=== PATIENT | male | born 1945 | race Caucasian/White ===

== ENCOUNTER 2023-01-21 07:34 | Outpatient (OUT) | payer MEDICARE, SELFPAY ==
[2023-01-21 08:36] LABS: Magnesium 1.9 mg/dL (1.8-2.4); Phosphorus 3.9 mg/dL (2.6-4.7); Uric Acid 7.9 mg/dL (3.5-7.2)
== END 2023-01-21 07:35 | disposition home or self-care (01) ==
LOC: LAB 07:38
PROVIDERS: PCP Nurse Practitioner Family; Visit Provider Internal Medicine Nephrology
DX: I12.9 Hypertensive chronic kidney disease with stage 1 through stage 4 chronic kidney disease, or unspecified chronic kidney disease (principal); N18.32 Chronic kidney disease, stage 3b; E78.5 Hyperlipidemia, unspecified; E79.0 Hyperuricemia without signs of inflammatory arthritis and tophaceous disease; E83.42 Hypomagnesemia
CPT/HCPCS: 36415; 83735; 84100; 84550

== ENCOUNTER 2023-01-21 07:44 | Outpatient (OUT) | payer MEDICARE, SELFPAY ==
[2023-01-21 08:14] LABS: Basophils Percent Auto 0.2 % (0.2-2.0); Eosinophils Absolute Auto 0.2 10^3/uL (0.0-0.7); Eosinophils Percent Auto 2.5 % (0.9-7.0); Hemoglobin 13.7 g/dL (14.0-18.0); Immature Granulocytes Abs Auto 0.03 10^3/uL (0.00-0.03); Immature Granulocytes Pct Auto 0.3 % (0.0-0.5); Lymphocytes Absolute Auto 2.6 10^3/uL (1.2-3.8); Lymphocytes Percent Auto 29.1 % (20.5-60.0); Mean Corpuscular HGB Conc 31.9 g/dL (29.9-35.2); Mean Corpuscular Volume 94.3 fL (80.0-94.0); Mean Platelet Volume 11.6 fL (9.5-13.5); Monocytes Absolute Auto 0.9 10^3/uL (0.3-0.8); Monocytes Percent Auto 9.8 % (1.7-12.0); Neutrophils Absolute Auto 5.1 10^3/uL (1.4-6.5); Neutrophils Percent Auto 58.1 % (43.0-75.0); Platelet Count 150 10^3/uL (150-450); Red Blood Count 4.56 10^6/uL (4.70-6.10); Red Cell Distribution Width 13.3 % (11.0-15.0); White Blood Count 8.8 10^3/uL (4.0-11.0)
[2023-01-21 08:32] LABS: Estimated Average Glucose 134 mg/dL; Glycohemoglobin A1C 6.3 % (4.5-6.2)
[2023-01-21 08:37] LABS: Alanine Aminotransferase 46 U/L (16-63); Albumin Globulin Ratio 0.9; Albumin Level 3.7 g/dL (3.4-5.0); Alkaline Phosphatase 66 U/L (46-116); Anion Gap 11.6; Aspartate Amino Transferase 23 U/L (15-37); Bilirubin Total 0.2 mg/dL (0.2-1.0); Calcium 9.5 mg/dL (8.5-10.1); Carbon Dioxide 26.7 mmol/L (21.0-32.0); Chloride 105 mmol/L (98-107); Cholesterol 170 mg/dL (<=200); Estimated GFR (African America 40 (>=60); Estimated GFR (Non-African Ame 33 (>=60); Globulin 3.9 g/dL; Glucose 115 mg/dL (74-106); HDL Cholesterol 42 mg/dL (40-60); Potassium 4.3 mmol/L (3.5-5.1); Sodium 139 mmol/L (136-145); Total Protein 7.6 g/dL (6.4-8.2); Triglycerides 178 mg/dL (<=150); VLDL CHOLESTEROL 35.6 mg/dL
[2023-01-21 10:13] LABS: Prostate Specific Antigen Scrn 0.53 ng/mL (<=4.00)
== END 2023-01-21 07:45 | disposition home or self-care (01) ==
LOC: LAB 07:46
PROVIDERS: PCP Nurse Practitioner Family; Visit Provider Nurse Practitioner Family
DX: E11.22 Type 2 diabetes mellitus with diabetic chronic kidney disease (principal); E78.5 Hyperlipidemia, unspecified; R73.09 Other abnormal glucose; I12.9 Hypertensive chronic kidney disease with stage 1 through stage 4 chronic kidney disease, or unspecified chronic kidney disease; N18.32 Chronic kidney disease, stage 3b; E79.0 Hyperuricemia without signs of inflammatory arthritis and tophaceous disease; E83.42 Hypomagnesemia; Z12.5 Encounter for screening for malignant neoplasm of prostate
CPT/HCPCS: 36415; 80053; 80061; 83036; 83735; 84100; 84550; 85025; G0103

== ENCOUNTER 2023-07-08 07:59 | Outpatient (OUT) | payer MEDICARE, SELFPAY ==
[2023-07-08 08:26] LABS: Hematocrit 41.6 % (42.0-54.0); Hemoglobin 13.3 g/dL (14.0-18.0); Mean Corpuscular Hemoglobin 30.3 pg (25.9-34.0); Mean Corpuscular Volume 94.8 fL (80.0-94.0); Mean Platelet Volume 11.4 fL (9.5-13.5); Platelet Count 154 10^3/uL (150-450); Red Blood Count 4.39 10^6/uL (4.70-6.10); Red Cell Distribution Width 13.9 % (11.0-15.0); White Blood Count 9.4 10^3/uL (4.0-11.0)
[2023-07-08 08:26] LABS: Bilirubin Urine NEGATIVE (NEGATIVE); Blood Urine NEGATIVE (NEGATIVE); Clarity Urine CLEAR (CLEAR); Color Urine YELLOW (YELLOW); Glucose Urine UA NEGATIVE (NEGATIVE); Ketones Urine NEGATIVE (NEGATIVE); Leukocyte Esterase Urine NEGATIVE (NEGATIVE); Nitrite Urine NEGATIVE (NEGATIVE); Protein Urine NEGATIVE (NEG/TRACE); Specific Gravity Urine >=1.030 (1.005-1.025); Urobilinogen Urine 0.2 EU/dL (0.2-1.0); pH Urine 5.5 (5.0-9.0)
[2023-07-08 08:35] LABS: Protein Creatinine Ratio Urine 0.09; Total Protein Urine Random 23.2 mg/dL (<=11.9)
[2023-07-08 08:41] LABS: Alanine Aminotransferase 41 U/L (16-63); Albumin Globulin Ratio 0.8; Albumin Level 3.3 g/dL (3.4-5.0); Alkaline Phosphatase 76 U/L (46-116); Anion Gap 16.1; Aspartate Amino Transferase 23 U/L (15-37); BUN Creatinine Ratio 17.7; Bilirubin Total 0.4 mg/dL (0.2-1.0); Calcium 9.3 mg/dL (8.5-10.1); Carbon Dioxide 24.8 mmol/L (21.0-32.0); Chloride 103 mmol/L (98-107); Estimated GFR (African America 35 (>=60); Estimated GFR (Non-African Ame 29 (>=60); Globulin 4.1 g/dL; Glucose 126 mg/dL (74-106); Magnesium 1.6 mg/dL (1.8-2.4); Phosphorus 4.1 mg/dL (2.6-4.7); Potassium 3.9 mmol/L (3.5-5.1); Sodium 140 mmol/L (136-145); Total Protein 7.4 g/dL (6.4-8.2); Uric Acid 8.5 mg/dL (3.5-7.2)
[2023-07-09 11:08] LABS: PTH, Intact 57 pg/mL (15-65)
== END 2023-07-08 08:00 | disposition home or self-care (01) ==
LOC: LAB 08:00
PROVIDERS: PCP Nurse Practitioner Family; Visit Provider Internal Medicine Nephrology
DX: N18.32 Chronic kidney disease, stage 3b (principal); I10 Essential (primary) hypertension; E78.5 Hyperlipidemia, unspecified; E79.0 Hyperuricemia without signs of inflammatory arthritis and tophaceous disease; E83.42 Hypomagnesemia
CPT/HCPCS: 36415; 80053; 81003; 82306; 82570; 83735; 83970; 84100; 84156; 84550; 85027

== ENCOUNTER 2024-01-05 07:07 | Outpatient (OUT) | payer MEDICARE, SELFPAY ==
--- OUTSIDE RECORDS SUMMARY | 2024-01-05 07:12 | XMS_ITS | CCD ---
Author Organization [facility] Care Team Providers Care Manufacturing Supervisor Name Role Phone Ignacio Olivares Unavailable PRABHA ULRICH Admitting Unavailable PRABHA ULRICH Attending Unavailable PRABHA ULRICH Primary Care Unavailable MITCHELL, DOCTOR Admitting Unavailable MITCHELL, DOCTOR Attending Unavailable PRABHA ULRICH Primary Care Unavailable MITCHELL, DR TREVIZO Consulting Unavailable IGNACIO OLIVARES Admitting Unavailable IGNACIO OLIVARES Attending Unavailable PRABHA ULRICH Primary Care Unavailable IGNACIO OLIVARES Consulting Unavailable Medications Current Medications Medication Drug Class(es) Dates Sig (Normalized) Sig (Original) fluticasone propionate 0.05 mg/actuat metered dose nasal spray (5 sources) Corticosteroid take 1 spray(s) nasa l route once daily Fluticasone Propionate 50 MCG/ACT 1 spray in each nostril Nasally Once a day Active take 1 spray(s) nasal route once daily Fluticasone Propionate 50 MCG/ACT 1 spray in each nostril Nasally Once a day Active hydroCHLOROthiazide 25 mg oral tablet (5 sources) Thiazide Diuretic take 1 tablet by mouth every twenty-four hours hydroCHLOROthiazide 25 MG 1 tablet in the morning Orally Once a day Active lisinopril 40 mg oral tablet (5 sources) Angiotensin Converting Enzyme Inhibitor take 1 tablet by mouth every twenty-four hours Lisinopril 40 MG 1 tablet Orally Once a day Active magnesium oxide 400 mg oral tablet (3 sources) Start : 08-05 take 1 tablet by mouth every twenty-four hours Magnesium Oxide 400 MG 1 tablet as needed Orally Once a day for 90 days Jul, Active pravastatin sodium 40 mg oral tablet (5 sources) HMG-CoA Reductase Inhibitor take 1 tablet by mouth every twenty-four hours Pravastatin Sodium 40 MG 1 tablet Orally Once a day Active Problems Active Problems Problem Classification Problem Date Documented Date Episodic/Chronic Chronic kidney disease (5 sources) Chronic kidney disease stage 3B ; Translations: [Chronic kidney disease, stage 3b] Chronic Deficiency and other anemia (1 source) Anemia, unspecified Episodic Disorders of lipid metabolism (11 sources) Hyperlipidemia; Translations: [Hyperlipidemia, unspecified] Onset: 10-15-2021 Resolved: 01-14-2022 Chronic Essential hypertension (10 sources) Essential hypertension; Translations: [Essential (primary) hypertension] Onset: 10-15-2021 Resolved: 01-14-2022 Chronic Hypertension with complications and secondary hypertension (4 sources) Hypertensive chronic kidney disease with stage 1 through stage 4 chronic kidney disease, or unspecified chronic kidney disease; Translations: [HTN CKD W/STAGE 1-4 CKD/UNS CKD] Onset: 07-29-2022 Chronic Nutritional deficiencies (2 sources) Vitamin D deficiency; Translations: [Vitamin D deficiency, unspecified] Chronic Other diseases of kidney and ureters (5 sources) Impaired renal function disorder; 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, unspecified] Chronic Other nutritional; endocrine; and metabolic disorders (3 sources) Hypomagnesemia; Translations: [Hypomagnesemia] Chronic Other nutritional; endocrine; and metabolic disorders (3 sources) Hypomagnesemia Chronic Other nutritional; endocrine; and metabolic disorders (1 source) Body mass index 30+ - obesity; Translations: [Obesity, unspecified] Chronic Other nutritional; endocrine; and metabolic disorders (1 source) Obesity, unspecified Chronic Other nutritional; endocrine; and metabolic disorders (5 sources) Hyperuricemia without signs of inflammatory arthritis and tophaceous disease; Translations: [HU W/O SIGNS IA AND TOPHACEOUS DZ] Onset: 01-14-2022 Resolved: 01-14-2022 Episodic Past or Other Problems Problem Classification Problem Date Documented Da te Episodic/Chronic Chronic kidney disease (6 sources) Chronic kidney disease; Translations: [CHRONIC KIDNEY DISEASE STAGE 3B] Onset: 10-15-2021 Resolved: 01-14-2022 Results Test Name Value Interpretation Reference Range Facil ity PTH INTACTon 07-30-2022 PTH, Intact 48 pg/mL Normal 15-65 [facility] Comment on above: Performed By: #### U RTPCR #### [facility] [address] [place] [address] Dr. Ayanna Guido HEMOGRAM AND PLATELon 2022 Hematocrit (Bld) [Volume fraction] 44.6 % Normal 42.0-54.0 [facility] Comment on above: Performed By: #### H H #### [facility] [address] [place] [address] Dr. Ayanna Guido Hemoglobin (Bld) [Mass/Vol] 14.5 g/dL Normal 14.0-18.[address] [facility] Comment on above: Performed By: #### H H #### [facility] [address] [place] [address] Dr. Ayanna Guido MCH (RBC) [Entitic mass] 29.8 pg Normal 25.9-34.[address] [facility] Comment on above: Performed By: #### H H #### [facility] [address] [place] [address] Dr. Ayanna Guido MCHC (RBC) [Mass/Vol] 32.5 g/dL Normal 29.9-35.[address] [facility] Comment on above: Performed By: #### H H #### [facility] [address] [place] [address] Dr. Ayanna Guido MCV (RBC) [Entitic vol] 91.6 fL Normal 80.0-94.[address] [facility] Comment on above: Performed By: #### H H #### [facility] [address] [place] [address] Dr. Ayanna Guido PLT 171 103/ul Normal 150-[address] [facility] Comment on above: Performed By: #### H H #### [facility] [address] [place] [address] Dr. Ayanna Guido RBC 4.87 106/ul Normal 4.70-6.[address] [facility] Comment on above: Performed By: #### H H #### [facility] [address] [place] [address] Dr. Ayanna Giudo WBC 9.7 103/ul Normal 4.0-11.[address] [facility] Comment on above: Performed By: #### H H #### [facility] [address] [place] [address] Dr. Ayanna Guido MAGNESIUMon 01-17-2023 Magnesium [Mass/Vol] 1.7 mg/dL Critically low 1.8-2.4 [facility] Comment on above: Performed By: #### M G, CMP #### [facility] [address] [address] [address] Ayanna Guido PROF 14(COMP METB)on 023 Albumin [Mass/Vol] 3.9 g/dL Normal 3.4-5.0 [facility] Comment on above: Performed By: #### M G, CMP #### [facility] [address] [address] [address] Ayanna Guido Albumin/Globulin [Mass ratio] 1.1 {ratio} Normal [facility] Comment on above: Performed By: #### M G, CMP #### [facility] [address] [place] [address] Dr. Ayanna Guido ALP [Catalytic activity/Vol] 71 U/L Normal 46-116 [facility] Comment on above: Performed By: #### M G, CMP #### [facility] [address] [place] [address] Dr. Ayanna Guido ALT [Catalytic activity/Vol] 36 U/L Normal 16-63 [facility] Comment on above: Performed By: #### M G, CMP #### [facility] [address] [address] [address] Ayanna Guido Anion gap [Moles/Vol] 17.2 mmol/L Normal [facility] Comment on above: Performed By: #### M G, CMP #### [facility] [address] [place] [address] Dr. Ayanna Guido AST [Catalytic activity/Vol] 22 U/L Normal 15-37 [facility] Comment on above: Performed By: #### M G, CMP #### [facility] [address] [place] [address] Dr. Ayanna Guido Bilirubin [Mass/Vol] 0.3 mg/dL Normal 0.2-1.0 [facility] Comment on above: Performed By: #### M G, CMP #### [facility] [address] [address] [address] Ayanna Guido Calcium [Mass/Vol] 9.6 mg/dL Normal 8.5-10.1 [facility] Comment on above: Performed By: #### M G, CMP #### [facility] [address] [address] [address] Ayanna Guido Chloride [Moles/Vol] 102 mmol/L Normal 98-107 [facility] Comment on above: Performed By: #### M G, CMP #### [facility] [address] [place] [address] Dr. Ayanna Guido CO2 [Moles/Vol] 24.0 mmol/L Normal 21.0-32.0 [facility] Comment on above: Performed By: #### M G, CMP #### [facility] [address] [place] [address] Dr. Ayanna Guido Creatinine [Mass/Vol] 1.89 mg/dL Critically high 0.70-1.30 [facility] Comment on above: Performed By: #### M G, CMP #### [facility] [address] [place] [address] Dr. Ayanna Guido EGFR-AF SWAZI 42 mL/min/1.73m2 Critically low >=60 [facility] Comment on above: Performed By: #### M G, CMP #### [facility] [address] [place] [address] Dr. Ayanna Guido EGFR-NON AF SWAZI 35 mL/min/1.73m2 Critically low >=60 [facility] Comment on above: Performed By: #### M G, CMP #### [facility] [address] [place] [address] Dr. Ayanna Guido Globulin (S) [Mass/Vol] 3.6 g/dL Normal [facility] Comment on above: Performed By: #### M G, CMP #### [facility] [address] [place] [address] Dr. Ayanna Guido Glucose [Mass/Vol] 123 mg/dL Critically high 74-106 [facility] Comment on above: Performed By: #### M G, CMP #### [facility] [address] [address] [address] Ayanna Guido Potassium [Moles/Vol] 4.2 mmol/L Normal 3.5-5.1 [facility] Comment on above: Performed By: #### M G, CMP #### [facility] [address] [place] [address] Dr. Ayanna Guido Protein [Mass/Vol] 7.5 g/dL Normal 6.4-8.2 [facility] Comment on above: Performed By: #### M G, CMP #### [facility] [address] [place] [address] Dr. Ayanna Guido Sodium [Moles/Vol] 139 mmol/L Normal 136-145 [facility] Comment on above: Performed By: #### M G, CMP #### [facility] [address] [place] [address] Dr. Ayanna Guido Urea nitrogen [Mass/Vol] 37.0 mg/dL Critically high 7.0-18.0 [facility] Comment on above: Performed By: #### M G, CMP #### [facility] [address] [place] [address] Dr. Ayanna Guido Urea nitrogen/Creatinine [Mass ratio] 19.6 mg/mg Normal [facility] Comment on above: Performed By: #### M G, CMP #### [facility] [address] [place] [address] Dr. Ayanna Guido UA RANDOMon 07-29-2022 Bilirubin Ql (U) Negative Normal NEGATIVE [facility] Comment on above: Performed By: #### U RTPCR #### [facility] [address] [place] [address] Dr. Ayanna Guido Clarity (U) CLEAR Normal CLEAR [facility] Comment on above: Performed By: #### U RTPCR #### [facility] [address] [place] [address] Dr. Ayanna Guido Color (U) LT. YELLOW Normal YELLOW [facility] Comment on above: Performed By: #### U RTPCR #### [facility] [address] [address] [address] Ayanna Guido Glucose Ql (U) Negative Normal NEGATIVE [facility] Comment on above: Performed By: #### U RTPCR #### [facility] [address] [place] [address] Dr. Ayanna Guido Hemoglobin Ql (U) Negative Normal NEGATIVE [facility] Comment on above: Performed By: #### U RTPCR #### [facility] [address] [place] [address] Dr. Ayanna Guido Ketones Ql (U) Negative Normal NEGATIVE [facility] Comment on above: Performed By: #### U RTPCR #### [facility] [address] [place] [address] Dr. Ayanna Guido LEUKOCYTES Negative Normal NEGATIVE [facility] Comment on above: Performed By: #### U RTPCR #### [facility] [address] [place] [address] Dr. Ayanna Guido Nitrite Ql (U) Negative Normal NEGATIVE [facility] Comment on above: Performed By: #### U RTPCR #### [facility] [address] [place] [address] Dr. Ayanna Guido pH (U) 5.5 [pH] Normal 5-[address] [facility] Comment on above: Performed By: #### U RTPCR #### [facility] [address] [place] [address] Dr. Ayanna Guido SPEC GRAVITY 1.025 Normal 1.005-<=1.025 [facility] Comment on above: Performed By: #### U RTPCR #### [facility] [address] [place] [address] Dr. Ayanna Guido UA PROTEIN Negative Normal NEGATIVE/ TRACE [facility] Comment on above: Performed By: #### U RTPCR #### [facility] [address] [place] [address] Dr. Ayanna Guido Urobilinogen Qn (U) 0.2 {Sejal'U}/dL Normal 0.2 - 1. 0 [facility] Comment on above: Performed By: #### U RTPCR #### [facility] [address] [place] [address] Dr. Ayanna Guido URINE T PROTEIN CREAT RATIOo n 07-29-2022 Protein (U) [Mass/Vol] 19.1 mg/dL Critically high <=12.0 [facility] Comment on above: Performed By: #### U RTPCR #### [facility] [address] [place] [address] Dr. Ayanna Guido UR PROT CREAT RAT 0.09 Normal [facility] Comment on above: Performed By: #### U RTPCR #### [facility] [address] [place] [address] Dr. Ayanna Guido URINE CREAT 208.17 mg/dL Normal 20.00-300.00 [facility] Comment on above: Performed By: #### U RTPCR #### [facility] [address] [place] [address] Dr. Ayanna Guido VITAMIN D 25 OHon 07-29-2022 VIT D 25-OH 33.7 ng/mL Normal [facility] Comment on above: Performed By: #### V ITAD #### [facility] [address] [place] [address] Dr. Ayanna Guido VIT D RANGES SEE BELOW Normal [facility] Comment on above: Result Comment: <20 ng/mL Vit D deficient 20 - <30 ng/mL Vit D insufficient 30 - 100 ng/mL Vit D sufficient >100 ng/mL Potential Toxicity Performed By: #### V ITAD #### [facility] [address] [place] [address] Dr. Ayanna Guido PTH INTACTon 01-08-2022 PTH, Intact 55 pg/mL Normal 15-65 [facility] Comment on above: Performed By: #### P THINT #### [facility] [address] [place] [address] Dr. Ayanna Guido HEMOGRAM AND PLATELon 2021 Hematocrit (Bld) [Volume fraction] 46.0 % Normal 42.0-54.0 [facility] Comment on above: Performed By: #### H H #### [facility] [address] [place] [address] Dr. Ayanna Guido Hemoglobin (Bld) [Mass/Vol] 14.7 g/dL Normal 14.0-18.0 [facility] Comment on above: Performed By: #### H H #### [facility] [address] [place] [address] Dr. Ayanna Guido MCH (RBC) [Entitic mass] 29.8 pg Normal 25.9-34.0 [facility] Comment on above: Performed By: #### H H #### [facility] [address] [place] [address] Dr. Ayanna Guido MCHC (RBC) [Mass/Vol] 32.0 g/dL Normal 29.9-35.2 [facility] Comment on above: Performed By: #### H H #### [facility] [address] [place] [address] Dr. Ayanna Guido MCV (RBC) [Entitic vol] 93.1 fL Normal 80.0-94.0 [facility] Comment on above: Performed By: #### H H #### [facility] [address] [place] [address] Dr. Ayanna Guido PLT 165 103/ul Normal 150-450 [facility] Comment on above: Performed By: #### H H #### [facility] [address] [place] [address] Dr. Ayanna Guido RBC 4.94 106/ul Normal 4.70-6.10 [facility] Comment on above: Performed By: #### H H #### [facility] [address] [place] [address] Dr. Ayanna Guido WBC 9.7 103/ul Normal 4.0-11.0 [facility] Comment on above: Performed By: #### H H #### [facility] [address] [place] [address] Dr. Ayanna Guido PROF 14(COMP METB)on 022 Albumin [Mass/Vol] 4.0 g/dL Normal 3.4-5.0 [facility] Comment on above: Performed By: #### U RTPCR #### [facility] [address] [place] [address] Dr. Ayanna Guido Albumin/Globulin [Mass ratio] 1.0 {ratio} Normal [facility] Comment on above: Performed By: #### U RTPCR #### [facility] [address] [place] [address] Dr. Ayanna Guido ALP [Catalytic activity/Vol] 63 U/L Normal 46-116 [facility] Comment on above: Performed By: #### U RTPCR #### [facility] [address] [place] [address] Dr. Ayanna Giudo ALT [Catalytic activity/Vol] 42 U/L Normal 16-63 [facility] Comment on above: Performed By: #### U RTPCR #### [facility] [address] [place] [address] Dr. Ayanna Guido Anion gap [Moles/Vol] 15.4 mmol/L Normal [facility] Comment on above: Performed By: #### U RTPCR #### [facility] [address] [place] [address] Dr. Ayanna Guido AST [Catalytic activity/Vol] 22 U/L Normal 15-37 [facility] Comment on above: Performed By: #### U RTPCR #### [facility] [address] [place] [address] Dr. Ayanna Guido Bilirubin [Mass/Vol] 0.5 mg/dL Normal 0.2-1.0 [facility] Comment on above: Performed By: #### U RTPCR #### [facility] [address] [place] [address] Dr. Ayanna Guido Calcium [Mass/Vol] 9.6 mg/dL Normal 8.5-10.1 [facility] Comment on above: Performed By: #### U RTPCR #### [facility] [address] [place] [address] Dr. Ayanna Guido Chloride [Moles/Vol] 102 mmol/L Normal 98-107 [facility] Comment on above: Performed By: #### U RTPCR #### [facility] [address] [place] [address] Dr. Ayanna Guido CO2 [Moles/Vol] 24.7 mmol/L Normal 21.0-32.0 [facility] Comment on above: Performed By: #### U RTPCR #### [facility] [address] [address] [address] Ayanna Guido Creatinine [Mass/Vol] 2.07 mg/dL Critically high 0.70-1.30 [facility] Comment on above: Performed By: #### U RTPCR #### [facility] [address] [address] [address] Ayanna Guido EGFR-AF SWAZI 38 mL/min/1.73m2 Critically low >=60 [facility] Comment on above: Performed By: #### U RTPCR #### [facility] [address] [place] [address] Dr. Ayanna Guido EGFR-NON AF SWAZI 32 mL/min/1.73m2 Critically low >=60 [facility] Comment on above: Performed By: #### U RTPCR #### [facility] [address] [place] [address] Dr. Ayanna Guido Globulin (S) [Mass/Vol] 4.0 g/dL Normal [facility] Comment on above: Performed By: #### U RTPCR #### [facility] [address] [place] [address] Dr. Ayanna Guido Glucose [Mass/Vol] 121 mg/dL Critically high 74-106 T [facility] Comment on above: Performed By: #### U RTPCR #### [facility] [address] [place] [address] Dr. Ayanna Guido Potassium [Moles/Vol] 5.1 mmol/L Normal 3.5-5.1 [facility] Comment on above: Performed By: #### U RTPCR #### [facility] [address] [place] [address] Dr. Ayanna Guido Protein [Mass/Vol] 8.0 g/dL Normal 6.4-8.2 [facility] Comment on above: Performed By: #### U RTPCR #### [facility] [address] [place] [address] Dr. Ayanna Guido Sodium [Moles/Vol] 137 mmol/L Normal 136-145 [facility] Comment on above: Performed By: #### U RTPCR #### [facility] [address] [place] [address] Dr. Ayanna Guido Urea nitrogen [Mass/Vol] 34.0 mg/dL Critically high 7.0-18.0 [facility] Comment on above: Performed By: #### U RTPCR #### [facility] [address] [place] [address] Dr. Ayanna Guido Urea nitrogen/Creatinine [Mass ratio] 16.4 mg/mg Normal [facility] Comment on above: Performed By: #### U RTPCR #### [facility] [address] [place] [address] Dr. Ayanna Guido UA RANDOMon 01-07-2022 Bilirubin Ql (U) Negative Normal NEGATIVE [facility] Comment on above: Performed By: #### U RTPCR #### [facility] [address] [place] [address] Dr. Ayanna Guido Clarity (U) CLEAR Normal CLEAR [facility] Comment on above: Performed By: #### U RTPCR #### [facility] [address] [place] [address] Dr. Ayanna Guido Color (U) YELLOW Normal YELLOW [facility] Comment on above: Performed By: #### U RTPCR #### [facility] [address] [place] [address] Dr. Ayanna Guido Glucose Ql (U) Negative Normal NEGATIVE [facility] Comment on above: Performed By: #### U RTPCR #### [facility] [address] [place] [address] Dr. Ayanna Guido Hemoglobin Ql (U) Negative Normal NEGATIVE [facility] Comment on above: Performed By: #### U RTPCR #### [facility] [address] [place] [address] Dr. Ayanna Guido Ketones Ql (U) Negative Normal NEGATIVE [facility] Comment on above: Performed By: #### U RTPCR #### [facility] [address] [place] [address] Dr. Ayanna Guido LEUKOCYTES Negative Normal NEGATIVE [facility] Comment on above: Performed By: #### U RTPCR #### [facility] [address] [place] [address] Dr. Ayanna Guido Nitrite Ql (U) Negative Normal NEGATIVE [facility] Comment on above: Performed By: #### U RTPCR #### [facility] [address] [place] [address] Dr. Ayanna Guido pH (U) 5.5 [pH] Normal 5-9 [facility] Comment on above: Performed By: #### U RTPCR #### [facility] [address] [place] [address] Dr. Ayanna Guido SPEC GRAVITY 1.020 Normal 1.005-<=1.025 [facility] Comment on above: Performed By: #### U RTPCR #### [facility] [address] [place] [address] Dr. Ayanna Guido UA PROTEIN Negative Normal NEGATIVE/ TRACE [facility] Comment on above: Performed By: #### U RTPCR #### [facility] [address] [place] [address] Dr. Ayanna Guido Urobilinogen Qn (U) 0.2 {Sejal'U}/dL Normal 0.2 - 1. 0 [facility] Comment on above: Performed By: #### U RTPCR #### [facility] [address] [place] [address] Dr. Ayanna Guido URIC ACID SERUMon 01-07-2022 Urate [Mass/Vol] 8.7 mg/dL Critically high 3.5-7.2 [facility] Comment on above: Performed By: #### U ANDREE, CMP #### [facility] [address] [place] [address] Dr. Ayanna Guido URINE T PROTEIN CREAT RATIOo n 01-07-2022 Protein (U) [Mass/Vol] 11.2 mg/dL Normal <=12.0 [facility] Comment on above: Performed By: #### U RTPCR #### [facility] [address] [place] [address] Dr. Ayanna Guido UR PROT CREAT RAT 0.07 Normal [facility] Comment on above: Performed By: #### U RTPCR #### [facility] [address] [address] [address] Ayanna Guido URINE CREAT 172.34 mg/dL Normal 20.00-300.00 [facility] Comment on above: Performed By: #### U RTPCR #### [facility] [address] [address] [address] Ayanna Guido VITAMIN D 25 OHon 01-07-2022 VIT D 25-OH 33.4 ng/mL Normal [facility] Comment on above: Performed By: #### V ITAD #### [facility] [address] [place] [address] Dr. Ayanna Guido VIT D RANGES SEE BELOW Normal [facility] Comment on above: Result Comment: <20 ng/mL Vit D deficient 20 - <30 ng/mL Vit D insufficient 30 - 100 ng/mL Vit D sufficient >100 ng/mL Potential Toxicity Performed By: #### V ITAD #### [facility] [address] [place] [address] Dr. Ayanna Guido Vital Signs Date Time Vital Sign Value Performing Clinician Facility 07-15-2023 09:20-0500 Body height 168.91 cm Ignacio Wangvanda Other [facility] [employer] Other 07-15-2023 09:20-0500 Body mass index (BMI) [Ratio] 36.28 kg/m2 Ignacio Wangvanda Other [facility] Other 07-15-2023 09:20-0500 Body temperature 96.5 [degF] Ignacio Olivares Other [facility] Other 07-15-2023 09:20-0500 Body weight 103.51 kg Ignacio Wangvanda Other [facility] Other 07-15-2023 09:20-0500 Diastolic blood pressure 80 mm[Hg] Aziz Bakhous Other [facility] Other 07-15-2023 09:20-0500 Respiratory rate 18 /min Aziz Bakhous Other [facility] Other 07-15-2023 09:20-0500 SaO2% (BldA) [Mass fraction] 96 % Aziz Bakhous Other [facility] Other 07-15-2023 09:20-0500 Systolic blood pressure 126 mm[Hg] Aziz Bakhous Other [facility] Other 01-27-2023 09:00-0400 Body height 168.91 cm Azariana Bakchilos Other [facility] Other 01-27-2023 09:00-0400 Body mass index (BMI) [Ratio] 36.75 kg/m2 Aziz Bakhous Other [facility] Other 01-27-2023 09:00-0400 Body temperature 96.9 [degF] Azariana Bakhous Other [facility] Other 01-27-2023 09:00-0400 Body weight 104.87 kg Aziz Bakhous Other [facility] Other 01-27-2023 09:00-0400 Diastolic blood pressure 80 mm[Hg] Aziz Bakhous Other [facility] Other 01-27-2023 09:00-0400 Respiratory rate 18 /min Aziz Bakhous Other [facility] Other 01-27-2023 09:00-0400 SaO2% (BldA) [Mass fraction] 96 % Aziz Bakchilos Other [facility] Other 01-27-2023 09:00-0400 Systolic blood pressure 135 mm[Hg] Aziz Bakhous Other [facility] Other 08-05-2022 10:20-0500 Body height 168.91 cm Aziz Bakhous Other [facility] Other 08-05-2022 10:20-0500 Body mass index (BMI) [Ratio] 34.69 kg/m2 Aziz Bakhous Other [facility] Other 08-05-2022 10:20-0500 Body temperature 98.5 [degF] Aziz Bakhous Other [facility] Other 08-05-2022 10:20-0500 Body weight 98.98 kg Aziz Bakhous Other [facility] Other 08-05-2022 10:20-0500 Diastolic blood pressure 88 mm[Hg] Aziz Bakhous Other [facility] Other 08-05-2022 10:20-0500 Respiratory rate 18 /min Aziz Bakhous Other [facility] Other 08-05-2022 10:20-0500 SaO2% (BldA) [Mass fraction] 97 % Aziz Bakhous Other [facility] Other 08-05-2022 10:20-0500 Systolic blood pressure 139 mm[Hg] Aziz Bakhous Other [facility] Other 01-14-2022 11:00-0400 Body height 168.91 cm Ignacio Bonners Other [facility] Other 01-14-2022 11:00-0400 Body mass index (BMI) [Ratio] 34.24 kg/m2 Ignacio Bonners Other [facility] Other 01-14-2022 11:00-0400 Body temperature 96.5 [degF] Ignacio Bonners Other [facility] Other 01-14-2022 11:00-0400 Body weight 97.71 kg Ignacio Bonners Other [facility] Other 01-14-2022 11:00-0400 Diastolic blood pressure 90 mm[Hg] Ignacio Bonners Other [facility] Other 01-14-2022 11:00-0400 Respiratory rate 18 /min Ignacio Bonners Other [facility] Other 01-14-2022 11:00-0400 SaO2% (BldA) [Mass fraction] 92 % Ignacio Bonners Other [facility] Other 01-14-2022 11:00-0400 Systolic blood pressure 137 mm[Hg] Ignacio Bonners Other [facility] Other 10-15-2021 16:00-0400 Body height 168.91 cm Ignacio Bonners Other [facility] Other 10-15-2021 16:00-0400 Body mass index (BMI) [Ratio] 36.85 kg/m2 Aziz Bakhous Other [facility] Other 10-15-2021 16:00-0400 Body temperature 98.1 [degF] Aziz Bakhous Other [facility] Other 10-15-2021 16:00-0400 Body weight 105.14 kg Aziz Bakhous Other [facility] Other 10-15-2021 16:00-0400 Diastolic blood pressure 73 mm[Hg] Aziz Bakhous Other [facility] Other 10-15-2021 16:00-0400 Respiratory rate 20 /min Aziz Bakhous Other [facility] Other 10-15-2021 16:00-0400 SaO2% (BldA) [Mass fraction] 95 % Aziz Bakhous Other [facility] Other 10-15-2021 16:00-0400 Systolic blood pressure 109 mm[Hg] Aziz Bakhous Other [facility] Other Encounters Encounter Date Encounter Type Care Provider Facility Start: 07-15-2023 End: 07-15-2023 ambulatory Aziz Bakhous Other [facility] Other Start: 07-15-2023 Office outpatient vi sit 25 minutes Aziz Bakhous [facility] Start: 01-27-2023 End: 01-27-2023 ambulatory Aziz Bakhous Other [facility] Other Start: 01-27-2023 Office outpatient vi sit 25 minutes Aziz Bakhous [facility] Start: 10-22-2022 ambulatory PRABHA ULRICH Facility: [facility] Start: 08-05-2022 End: 08-05-2022 ambulatory Aziz Bakhous Other [facility] Other Start: 08-05-2022 Office outpatient vi sit 15 minutes Aziz Bakhous [facility] Start: 07-29-2022 End: 07-30-2022 ambulatory AZIZ BAKHOUS Facility:[facility] Start: 01-14-2022 End: 01-14-2022 ambulatory Aziz Bakhous Other [facility] Other Start: 01-14-2022 Office outpatient vi sit 15 minutes Aziz Bakhous [facility] Start: 01-07-2022 End: 01-08-[address] DOCTOR MEDRANO Facility:[facility] Start: 10-15-2021 End: 10-15-2021 ambulatory Aziz Bakhous Other [facility] Other Start: 10-15-2021 Office outpatient ne w 30 minutes Aziz Bakhous [facility] Payers Date Payer Category Payer Medicare [id number] 2.. 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 UA is benign. No peritoneal hematuria Volume status is well controlled. Blood pressures well controlled.I asked the patient to follow a low protein diet. I instructed the patient to stay away from NSAIDs and to keep himself well-hydrated. I will follow the patient in 6 months Jul, Primary hypertension (ICD-10 - I10) Blood pressure seems well controlled. I will continue same medications. I asked the patient to follow a low-salt diet and to monitor blood pressure at home. Jul, Hyperlipidemia LDL goal <100 (ICD-10 - E78.5) Follow with PCP. Already on statin Jul, Hyperuricemia (ICD-10 - E79.0) Uric acid level is 8.5 patient has had no gout episodes in the past. I asked the patient to follow a low protein diet. Recheck uric acid next visit Jul, Hypomagnesemia (ICD-10 - E83.42) Mg is 1.6 mg/dl.Will send refill of Mg supplement Jul, Anemia, unspecified type (ICD-10 - D64.9) Hgb 12.3 g/dl. Will check iron. VB12 and folate storages next visit Jul, Obesity (BMI 30-39.9) (ICD-10 - E66.9) I advised the patient to lose weight to attenuate CKD progression. Jul, Vitamin D deficiency (ICD-10 - E55.9) 25 OH VD level is 28. 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 UA is benign. No peritoneal hematuria Volume status is well controlled. Blood pressures well controlled. I asked the patient to follow a low protein diet. I instructed the patient to stay away from NSAIDs and to keep himself well-hydrated. I will follow the patient in 6 months Jan, Primary hypertension (ICD-10 - I10) Blood pressure seems well controlled. I will continue same medications. I asked the patient to follow a low-salt diet and to monitor blood pressure at home. Jan, Hyperlipidemia LDL goal <100 (ICD-10 - E78.5) Follow with PCP. Already on statin Jan, Hyperuricemia (ICD-10 - E79.0) Uric acid level close to target 7.9 patient has had no gout episodes in the past I asked the patient to follow a low protein diet. Recheck uric acid next visit Jan, Hypomagnesemia (ICD-10 - E83.42) Continue magnesium supplement. Magnesium level is within normal limit this visit. 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 UA is benign. No peritoneal hematuria Volume status is well controlled. Blood pressures well controlled. I'll order renal US for next visit I asked the patient to follow a low protein diet. I instructed the patient to stay away from NSAIDs and to keep himself well-hydrated. I will follow the patient in 6 months Jul, Primary hypertension (ICD-10 - I10) Blood pressure seems well controlled. I will continue same medications Jul, Hyperlipidemia LDL goal <100 (ICD-10 - E78.5) Follow with PCP. Already on statin Jul, Hyperuricemia (ICD-10 - E79.0) Uric acid slightly high 8.6. Patient has had no gout episodes in the past I asked the patient to follow a low protein diet. 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 UA is benign. No peritoneal hematuria Volume status is well controlled. Blood pressures well controlled. I asked the patient to follow a low protein diet. I instructed the patient to stay away from NSAIDs and to keep himself well-hydrated. I will follow the patient in 6 months Jan, Primary hypertension (ICD-10 - I10) Blood pressure seems well controlled. I will continue same medications Jan, Hyperlipidemia LDL goal <100 (ICD-10 - E78.5) Follow with PCP. Already on statin Jan, Hyperuricemia (ICD-10 - E79.0) Uric acid slightly high 8.6. Patient has had no gout episodes in the past I asked the patient to follow a low protein diet. 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 Blood pressures well controlled. I will check UA along with protein to creatinine ratio, PTH, and anemia next visit. I will check also renal ultrasound. I asked the patient to follow a low protein diet. I instructed the patient to stay away from NSAIDs and to keep himself well-hydrated. I will follow the patient in 3-4 months Oct, Primary hypertension (ICD-10 - I10) Blood pressure seems well controlled. I will continue same medications Oct, Hyperlipidemia LDL goal <100 (ICD-10 - E78.5) Follow with PCP. Already on statin [facility] Other History general Narrative - Reported Note Date & Type Note Facility History general Narrative - Reported Type Medical History HYPERTENSION Medical History HYPERLIPIDEMIA Medical History SEASONAL ALLERGIES Medical History SLEEP APNEA Surgical History CARPAL TUNNEL RELEASE X 2 Surgical History THROAT SURGERY FOR SLEEP APNEA [facility] Other Summary Purpose Family History No Family History Records Found Advance Directives No Advanced Directives Records Found Additional Source Comments REASON FOR VISIT (unrecogniz ed section and content) RENAL WORSENING RENAL FUNCTI ONRENAL 3 month Follow upRENAL 6 month Follow upRENAL 6 month Follow upRENAL 6 month Follow up (unrecognized sect ion and content) No Status Records Found INFORMATION SOURCE (unrecogn ized section and content) DATE CREATED AUTHOR 10/22/2022 [facility] FOR RECORDS PERTAINING TO PATIENTS WHO ARE OR HAVE BEEN ENROLLED IN A CHEMICAL DEPENDENCY/SUBSTANCEABUSE PROGRAM, SOME INFORMATION MAY BE OMITTED. This clinical summary was aggregated from multiple sources. Caution should be exercised in using it in the provision of clinical care. This summary normalizes information from multiple sources, and as a consequence, information in this document may materially change the coding, format and clinical context of patient data. In addition, data may be omitted in some cases. CLINICAL DECISIONS SHOULD BE BASED ON THE PRIMARY CLINICAL RECORDS. [facility]. provides no warranty or guarantee of the accuracy or completeness of information in this document.
[2024-01-05 07:38] LABS: Hematocrit 45.8 % (42.0-54.0); Hemoglobin 14.7 g/dL (14.0-18.0); Mean Corpuscular HGB Conc 32.1 g/dL (29.9-35.2); Mean Corpuscular Volume 93.5 fL (80.0-94.0); Mean Platelet Volume 11.9 fL (9.5-13.5); Platelet Count 158 10^3/uL (150-450); Red Cell Distribution Width 14.4 % (11.0-15.0); White Blood Count 9.8 10^3/uL (4.0-11.0)
[2024-01-05 07:43] LABS: Alanine Aminotransferase 51 U/L (16-63); Albumin Globulin Ratio 0.9; Albumin Level 3.6 g/dL (3.4-5.0); Alkaline Phosphatase 77 U/L (46-116); Anion Gap 14.2; Aspartate Amino Transferase 27 U/L (15-37); BUN Creatinine Ratio 12.6; Bilirubin Total 0.4 mg/dL (0.2-1.0); Calcium 9.2 mg/dL (8.5-10.1); Carbon Dioxide 25.4 mmol/L (21.0-32.0); Chloride 105 mmol/L (98-107); Estimated GFR (African America 42 (>=60); Estimated GFR (Non-African Ame 35 (>=60); Globulin 3.9 g/dL; Glucose 132 mg/dL (74-106); Magnesium 2.1 mg/dL (1.8-2.4); Potassium 4.6 mmol/L (3.5-5.1); Sodium 140 mmol/L (136-145); Total Protein 7.5 g/dL (6.4-8.2); Uric Acid 7.3 mg/dL (3.5-7.2)
[2024-01-05 07:57] LABS: Creatinine Urine Random 135.65 mg/dL (20.00-300.00); Protein Creatinine Ratio Urine 0.18; Total Protein Urine Random 24.7 mg/dL (<=11.9)
[2024-01-05 09:34] LABS: Percent Iron Saturation 22.8 %
[2024-01-06 12:11] LABS: PTH, Intact 42 pg/mL (15-65)
== END 2024-01-05 07:08 | disposition home or self-care (01) ==
LOC: LAB 07:09
PROVIDERS: PCP Nurse Practitioner Family; Visit Provider Internal Medicine Nephrology
DX: N18.32 Chronic kidney disease, stage 3b (principal); I10 Essential (primary) hypertension; E78.5 Hyperlipidemia, unspecified; E79.0 Hyperuricemia without signs of inflammatory arthritis and tophaceous disease; E83.42 Hypomagnesemia; D64.9 Anemia, unspecified
CPT/HCPCS: 36415; 80053; 82306; 82570; 82607; 82728; 82746; 83540; 83550; 83735; 83970; 84100; 84156; 84550; 85027

== ENCOUNTER 2024-07-08 08:10 | Outpatient (OUT) | payer MEDICARE, SELFPAY ==
--- OUTSIDE RECORDS SUMMARY | 2024-07-08 08:28 | XMS_ITS | CCD ---
Author Organization [facility] CliniSywy Care Team Providers Care Customer Services Supervisor Name Role Phone Ignacio Olivares Unavailable PRABHA ULRICH Admitting Unavailable PRABHA ULRICH Attending Unavailable PRABHA ULRICH Primary Care Unavailable MISEcho, DOCTOR Admitting Unavailable MITCHELL, DOCTOR Attending Unavailable PRABHA ULRICH Primary Care Unavailable MITCHELL, DOCTOR Consulting Unavailable IGNACIO OLIVARES Admitting Unavailable IGNACIO OLIVARES Attending Unavailable PRABHA ULRICH Primary Care Unavailable IGNACIO OLIVARES Consulting Unavailable Medications Current Medications Medication Drug Class(es) Dates Sig (Normalized) Sig (Original) cholecalciferol 0.05 mg oral capsule (1 source) Vitamin D Start: 01-12-2024 take 50 ug by mouth once daily Cholecalciferol (Vitamin D3) Active 50 MCG PO Daily January 12, 2024 12:00am fluticasone propionate 0.05 mg/actuat metered dose nasal spray (6 sources) Corticosteroid Start: 01-12-2024 Fluticasone Propionate Active 1 SPRAY INTRANASAL Daily January 12, 2024 12:00am take 1 spray(s) nasal route once daily Fluticasone Propionate 50 MCG/ACT 1 spray in each nostril Nasally Once a day Active take 1 spray(s) nasal route once daily Fluticasone Propionate 50 MCG/ACT 1 spray in each nostril Nasally Once a day Active hydroCHLOROthiazide 25 mg oral tablet (6 sources) Thiazide Diuretic Start: 01-12-2024 take 25 mg by mouth once daily Hydrochlorothiazide Active 25 MG PO Daily January 12, 2024 12:00am take 1 tablet by miguelina th every twenty-four hours hydroCHLOROthiazide 25 MG 1 tablet in th e morning Orally Once a day Active lisinopril 40 mg oral tablet (6 sources) Angiotensin Converting Enzyme Inhibitor Start: 01-12-2024 take 40 mg by mouth once daily Lisinopril Active 40 MG PO Daily January 12, 2024 12:00am take 1 tablet by miguelina th every twenty-four hours Lisinopril 40 MG 1 tablet Orally Once a day Active magnesium oxide 400 mg oral tablet (4 sources) Start: 01-12-2024 take 400 mg by mouth once daily Magnesium Oxide Active 400 MG PO Daily January 12, 2024 12:00am Start: 08-05-2022 take 1 tablet by miguelina th every twenty-four hours Magnesium Oxide 400 MG 1 tablet as needed Orally Once a day for 90 days Jul, Active pravastatin sodium 40 mg oral tablet (6 sources) HMG-CoA Reductase Inhibitor Start: 01-12-2024 take 40 mg by mouth once daily Pravastatin Active 40 MG PO Daily January 12, 2024 12:00am take 1 tablet by miguelina th every twenty-four hours Pravastatin Sodium 40 MG 1 tablet Orally Once a day Active sildenafil 25 mg oral tablet (1 source) Phosphodiesterase 5 Inhibitor Start: 01-12-2024 take 25 mg by mouth once Sildenafil Active 25 MG PO Once January 12, 2024 12:00am Problems Active Problems Problem Classification Problem Date Documented Date Episodic/Chronic Chronic kidney disease (9 sources) Chronic kidney disease stage 3B ; Translations: [Chronic kidney disease, stage 3b] 01-08-2024 Chronic Deficiency and other anemia (1 source) Anemia, unspecified Episodic Disorders of lipid metabolism (13 sources) Hyperlipidemia; Translations: [Hyperlipidemia, unspecified] Onset: 10-15-2021 Resolved: 01-14-2022 Chronic Essential hypertension (10 sources) Essential hypertension; Translations: [Essential (primary) hypertension] Onset: 10-15-2021 Resolved: 01-14-2022 Chronic Hypertension with complications and secondary hypertension (6 sources) Hypertensive chronic kidney disease with stage 1 through stage 4 chronic kidney disease, or unspecified chronic kidney disease; Translations: [Hypertensive renal disease] Onset: 07-29-2022 Chronic Nutritional deficiencies (4 sources) Vitamin D deficiency; Translations: [Vitamin D deficiency, unspecified] Chronic Other diseases of kidney and ureters (5 sources) Impaired renal function disorder; 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, unspecified] Chronic Other nutritional; endocrine; and metabolic disorders (4 sources) Hypomagnesemia; Translations: [Hypomagnesemia] 01-08-2024 Chronic Other nutritional; endocrine; and metabolic disorders (4 sources) Hypomagnesemia; 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 Other nutritional; endocrine; and metabolic disorders (2 sources) Body mass index 30+ - obesity; Translations: [Obesity, unspecified] 01-08-2024 Chronic Other nutritional; endocrine; and metabolic disorders (2 sources) Obesity, unspecified; Translations: [Obesity, unspecified] Chronic Other nutritional; endocrine; and metabolic disorders (6 sources) Hyperuricemia without signs of inflammatory arthritis and tophaceous disease; Translations: [Other abnormal blood chemistry] Onset: 01-14-2022 Resolved: 01-14-2022 Episodic Other nutritional; endocrine; and metabolic disorders (1 source) Hyperuricemia; Translations: [Hyperuricemia without signs of inflammatory arthritis and tophaceous disease] 01-08-2024 Episodic Past or Other Problems Problem Classification Problem Date Documented Da te Episodic/Chronic Chronic kidney disease (6 sources) Chronic kidney disease; Translations: [CHRONIC KIDNEY DISEASE STAGE 3B] Onset: 10-15-2021 Resolved: 01-14-2022 Results Test Name Value Interpretation Reference Range Facil ity Erythrocyte distribution wid th Auto (RBC) [Ratio]on 01-05-2024 Erythrocyte distribution width (RBC) [Ratio] 14.4 % 11.0-15.0 [facility] Estimated glomerular filtrat ion rate (GFR) non- Americanon 01-05-2024 GFR/1.73 sq M.predicted among non-blacks MDRD (S/P/Bld) [Vol rate/Area] 35 mL/min/{1.73_m2} Low >=60 [facility] Globulin Calc (S) [Mass/Vol] on 01-05-2024 Globulin (S) [Mass/Vol] 3.9 g/dL [facility] Hematocrit Auto (Bld) [Volum e fraction]on 01-05-2024 Hematocrit (Bld) [Volume fraction] 45.8 % 42.0-54.0 [facility] Hemoglobin [Mass/volume] in Bloodon 01-05-2024 Hemoglobin (Bld) [Mass/Vol] 14.7 g/dL 14.0-18.0 [facility] Iron binding capacity [Mass/ volume] in Serum or Plasmaon 01-05-2024 Iron binding capacity [Mass/Vol] 333.0 ug/dL 250.0-450.0 [facility] Iron saturation [Mass Fracti on] in Serum or Plasmaon 01-05-2024 Iron saturation [Mass fraction] 22.8 % [facility] Laboratory - Chemistry and C hemistry - challengeon 01-05-2024 Albumin [Mass/Vol] 3.6 g/dL 3.4-5.0 [facility] ALP [Catalytic activity/Vol] 77 U/L 46-116 [facility] ALT [Catalytic activity/Vol] 51 U/L 16-63 [facility] AST [Catalytic activity/Vol] 27 U/L 15-37 [facility] Bilirubin [Mass/Vol] 0.4 mg/dL 0.2-1.0 [facility] Calcium [Mass/Vol] 9.2 mg/dL 8.5-10.1 [facility] Chloride [Moles/Vol] 105 mmol/L 98-107 [facility] CO2 [Moles/Vol] 25.4 mmol/L 21.0-32.0 [facility] Cobalamin (Vitamin B12) [Mass/Vol] 444.0 pg/mL 193.0-986.0 [facility] Creatinine [Mass/Vol] 1.90 mg/dL High 0.70-1.30 [facility] Ferritin [Mass/Vol] 255.0 ng/mL 26.0-388.0 [facility] GFR/1.73 sq M.predicted MDRD (S/P/Bld) [Vol rate/Area] 42 mL/min/{1.73_m2} Low >=60 [facility] Glucose [Mass/Vol] 132 mg/dL High 74-106 [facility] Iron [Mass/Vol] 76.0 ug/dL 65.0-175.0 [facility] Magnesium [Mass/Vol] 2.1 mg/dL 1.8-2.4 [facility] Potassium [Moles/Vol] 4.6 mmol/L 3.5-5.1 [facility] Protein [Mass/Vol] 7.5 g/dL 6.4-8.2 [facility] Sodium [Moles/Vol] 140 mmol/L 136-145 [facility] Urate [Mass/Vol] 7.3 mg/dL High 3.5-7.2 [facility] Urea nitrogen [Mass/Vol] 24.0 mg/dL High 7.0-18.0 [facility] Urea nitrogen/Creatinine [Mass ratio] 12.6 mg/mg [facility] Laboratory - Urinalysison Protein (U) [Mass/Vol] 24.7 mg/dL High <=11.9 [facility] Leukocytes [#/volume] correc zana for nucleated erythrocytes in Blood by Automated counon 01-05-2024 WBC corrected for nucl RBC Auto (Bld) [#/Vol] 9.8 10 3/uL 4.0-11.0 [facility] MCH Auto (RBC) [Entitic mass ]on 01-05-2024 MCH (RBC) [Entitic mass] 30.0 pg 25.9-34.0 [facility] MCHC Auto (RBC) [Mass/Vol]on 01-05-2024 MCHC (RBC) [Mass/Vol] 32.1 g/dL 29.9-35.2 [facility] MCV Auto (RBC) [Entitic vol] on 01-05-2024 MCV (RBC) [Entitic vol] 93.5 fL 80.0-94.0 [facility] No Panel Informationon 01-04 25-Hydroxy Vitamin D Total 50.3 ng/mL [facility] Comment on above: <20 ng/mL Vit D defi cient20-<30 ng/mL Vit D [id number] ng/mL Vit D sufficient>100 ng/mL Potential Toxicity Folate 13.40 ng/mL 8.60-58.90 [facility] Parathyroid Hormone (Intact) 42 pg/mL 15-65 [facility] Comment on above: Performed at: [address] [id number] Director: Joce Shepherd PhD, Phone: [phone] Phosphorus Level 4.0 mg/dL 2.6-4.7 [facility] Urine Random Creatinine 135.65 mg/dL 20.00-300.00 [facility] Platelet mean volume Auto (B ld) [Entitic vol]on 01-05-2024 Platelet mean volume (Bld) [Entitic vol] 11.9 fL 9.5-13.5 [facility] Platelets Auto (Bld) [#/Vol] on 01-05-2024 Platelets (Bld) [#/Vol] 158 10 3/uL 150-450 [facility] RBC Auto (Bld) [#/Vol]on RBC (Bld) [#/Vol] 4.90 10 6/uL 4.70-6.10 [facility] Serum or plasma albumin/glob ulin mass ratioon 01-05-2024 Albumin/Globulin [Mass ratio] 0.9 {ratio} [facility] Serum or plasma anion gap de terminationon 01-05-2024 Anion gap [Moles/Vol] 14.2 [facility] protein/creatinine rat ioon 01-05-2024 Protein/Creatinine (U) [Ratio] 0.18 [facility] PTH INTACTon 07-30-2022 PTH, Intact 48 pg/mL Normal 15-65 [facility] Comment on above: Performed By: #### U RTPCR #### [facility] [address] [place] [address] Dr. Ayanna Guido HEMOGRAM AND PLATELon 2022 Hematocrit (Bld) [Volume fraction] 44.6 % Normal 42.0-54.0 [facility] Comment on above: Performed By: #### H H #### [facility] [address] [address] [address] Ayanna Guido Hemoglobin (Bld) [Mass/Vol] 14.5 g/dL Normal 14.0-18.0 [facility] Comment on above: Performed By: #### H H #### [facility] [address] [place] [address] Dr. Ayanna Guido MCH (RBC) [Entitic mass] 29.8 pg Normal 25.9-34.0 [facility] Comment on above: Performed By: #### H H #### [facility] [address] [address] [address] Ayanna Guido MCHC (RBC) [Mass/Vol] 32.5 g/dL Normal 29.9-35.2 [facility] Comment on above: Performed By: #### H H #### [facility] [address] [place] [address] Dr. Ayanna Guido MCV (RBC) [Entitic vol] 91.6 fL Normal 80.0-94.0 [facility] Comment on above: Performed By: #### H H #### [facility] [address] [place] [address] Dr. Ayanna Guido PLT 171 103/ul Normal 150-450 [facility] Comment on above: Performed By: #### H H #### [facility] [address] [place] [address] Dr. Ayanna Guido RBC 4.87 106/ul Normal 4.70-6.10 [facility] Comment on above: Performed By: #### H H #### [facility] [address] [place] [address] Dr. Ayanna Guido WBC 9.7 103/ul Normal 4.0-11.0 [facility] Comment on above: Performed By: #### H H #### [facility] [address] [place] [address] Dr. Ayanna Guido MAGNESIUMon 07-29-2022 Magnesium [Mass/Vol] 1.7 mg/dL Critically low 1.8-2.4 [facility] Comment on above: Performed By: #### M G, CMP #### [facility] [address] [place] [address] Dr. Ayanna Guido PROF 14(COMP METB)on 023 Albumin [Mass/Vol] 3.9 g/dL Normal 3.4-5.0 [facility] Comment on above: Performed By: #### M G, CMP #### [facility] [address] [place] [address] Dr. Ayanna Guido Albumin/Globulin [Mass ratio] 1.1 {ratio} Normal [facility] Comment on above: Performed By: #### M G, CMP #### [facility] [address] [address] [address] Ayanna Guido ALP [Catalytic activity/Vol] 71 U/L Normal 46-116 [facility] Comment on above: Performed By: #### M G, CMP #### [facility] [address] [address] [address] Ayanna Guido ALT [Catalytic activity/Vol] 36 U/L Normal 16-63 [facility] Comment on above: Performed By: #### M G, CMP #### [facility] [address] [address] [address] Ayanna Guido Anion gap [Moles/Vol] 17.2 mmol/L Normal [facility] Comment on above: Performed By: #### M G, CMP #### [facility] [address] [place] [address] Dr. Ayanna Guido AST [Catalytic activity/Vol] 22 U/L Normal 15-37 [facility] Comment on above: Performed By: #### M G, CMP #### [facility] [address] [address] [address] Ayanna Guido Bilirubin [Mass/Vol] 0.3 mg/dL Normal 0.2-1.0 [facility] Comment on above: Performed By: #### M G, CMP #### [facility] [address] [address] [address] Ayanna Guido Calcium [Mass/Vol] 9.6 mg/dL Normal 8.5-10.1 [facility] Comment on above: Performed By: #### M G, CMP #### [facility] [address] [address] [address] Ayanna Guido Chloride [Moles/Vol] 102 mmol/L Normal 98-107 [facility] Comment on above: Performed By: #### M G, CMP #### [facility] [address] [address] [address] Ayanna Guido CO2 [Moles/Vol] 24.0 mmol/L Normal 21.0-32.0 [facility] Comment on above: Performed By: #### M G, CMP #### [facility] [address] [address] [address] Ayanna Guido Creatinine [Mass/Vol] 1.89 mg/dL Critically high 0.70-1.30 [facility] Comment on above: Performed By: #### M G, CMP #### [facility] [address] [address] [address] Ayanna Guido EGFR-AF POLISH 42 mL/min/1.73m2 Critically low >=60 [facility] Comment on above: Performed By: #### M G, CMP #### [facility] [address] [address] [address] Ayanna Guido EGFR-NON AF POLISH 35 mL/min/1.73m2 Critically low >=60 [facility] Comment on above: Performed By: #### M G, CMP #### [facility] [address] [address] [address] Ayanna Guido Globulin (S) [Mass/Vol] 3.6 g/dL Normal [facility] Comment on above: Performed By: #### M G, CMP #### [facility] [address] [address] [address] Ayanna Guido Glucose [Mass/Vol] 123 mg/dL Critically high 74-106 [facility] Comment on above: Performed By: #### M G, CMP #### [facility] [address] [address] [address] Ayanna Guido Potassium [Moles/Vol] 4.2 mmol/L Normal 3.5-5.1 [facility] Comment on above: Performed By: #### M G, CMP #### [facility] [address] [address] [address] Ayanna Guido Protein [Mass/Vol] 7.5 g/dL Normal 6.4-8.2 [facility] Comment on above: Performed By: #### M G, CMP #### [facility] [address] [address] [address] Ayanna Guido Sodium [Moles/Vol] 139 mmol/L Normal 136-145 [facility] Comment on above: Performed By: #### M G, CMP #### [facility] [address] [address] [address] Ayanna Guido Urea nitrogen [Mass/Vol] 37.0 mg/dL Critically high 7.0-18.0 [facility] Comment on above: Performed By: #### M G, CMP #### [facility] [address] [address] [address] Ayanna Guido Urea nitrogen/Creatinine [Mass ratio] 19.6 mg/mg Normal [facility] Comment on above: Performed By: #### M G, CMP #### [facility] [address] [place] [address] Dr. Ayanna Guido UA RANDOMon 07-29-2022 Bilirubin Ql (U) Negative Normal NEGATIVE [facility] Comment on above: Performed By: #### U RTPCR #### [facility] [address] [place] [address] Dr. Ayanna Guido Clarity (U) CLEAR Normal CLEAR [facility] Comment on above: Performed By: #### U RTPCR #### [facility] [address] [place] [address] Dr. Ayanna Guido Color (U) LT. YELLOW Normal YELLOW [facility] Comment on above: Performed By: #### U RTPCR #### [facility] [address] [place] [address] Dr. Ayanna Guido Glucose Ql (U) Negative Normal NEGATIVE [facility] Comment on above: Performed By: #### U RTPCR #### [facility] [address] [place] [address] Dr. Ayanna Guido Hemoglobin Ql (U) Negative Normal NEGATIVE [facility] Comment on above: Performed By: #### U RTPCR #### [facility] [address] [place] [address] Dr. Ayanna Guido Ketones Ql (U) Negative Normal NEGATIVE [facility] Comment on above: Performed By: #### U RTPCR #### [facility] [address] [place] [address] Dr. Ayanna Guido LEUKOCYTES Negative Normal NEGATIVE [facility] Comment on above: Performed By: #### U RTPCR #### [facility] [address] [address] [address] Ayanna Guido Nitrite Ql (U) Negative Normal NEGATIVE [facility] Comment on above: Performed By: #### U RTPCR #### [facility] [address] [place] [address] Dr. Ayanna Guido pH (U) 5.5 [pH] Normal 5-9 [facility] Comment on above: Performed By: #### U RTPCR #### [facility] [address] [address] [address] Ayanna Guido SPEC GRAVITY 1.025 Normal 1.005-<=1.025 [facility] Comment on above: Performed By: #### U RTPCR #### [facility] [address] [place] [address] Dr. Ayanna Guido UA PROTEIN Negative Normal NEGATIVE/ TRACE [facility] Comment on above: Performed By: #### U RTPCR #### [facility] [address] [place] [address] Dr. Ayanna Guido Urobilinogen Qn (U) 0.2 {Sejal'U}/dL Normal 0.2 - 1. 0 [facility] Comment on above: Performed By: #### U RTPCR #### [facility] [address] [place] [address] Dr. Ayanna Guido URINE T PROTEIN CREAT RATIOo n 07-29-2022 Protein (U) [Mass/Vol] 19.1 mg/dL Critically high <=12.0 [facility] Comment on above: Performed By: #### U RTPCR #### [facility] [address] [place] [address] Dr. Ayanna Guido UR PROT CREAT RAT 0.09 Normal [facility] Comment on above: Performed By: #### U RTPCR #### [facility] [address] [place] [address] Dr. Ayanna Guido URINE CREAT 208.17 mg/dL Normal 20.00-300.00 [facility] Comment on above: Performed By: #### U RTPCR #### [facility] [address] [place] [address] Dr. Ayanna Guido VITAMIN D 25 OHon 07-29-2022 VIT D 25-OH 33.7 ng/mL Normal [facility] Comment on above: Performed By: #### V ITAD #### [facility] [address] [place] [address] Dr. Ayanna Guido VIT D RANGES SEE BELOW Normal [facility] Comment on above: Result Comment: <20 ng/mL Vit D deficient 20 - <30 ng/mL Vit D insufficient 30 - 100 ng/mL Vit D sufficient >100 ng/mL Potential Toxicity Performed By: #### V ITAD #### [facility] [address] [place] [address] Dr. Ayanna Guido PTH INTACTon 01-08-2022 PTH, Intact 55 pg/mL Normal 15-65 [facility] Comment on above: Performed By: #### P THINT #### [facility] [address] [place] [address] Dr. Ayanna Guido HEMOGRAM AND PLATELon 2021 Hematocrit (Bld) [Volume fraction] 46.0 % Normal 42.0-54.0 [facility] Comment on above: Performed By: #### H H #### [facility] [address] [place] [address] Dr. Ayanna Guido Hemoglobin (Bld) [Mass/Vol] 14.7 g/dL Normal 14.0-18.0 [facility] Comment on above: Performed By: #### H H #### [facility] [address] [place] [address] Dr. Ayanna Guido MCH (RBC) [Entitic mass] 29.8 pg Normal 25.9-34.0 [facility] Comment on above: Performed By: #### H H #### [facility] [address] [place] [address] Dr. Ayanna Guido MCHC (RBC) [Mass/Vol] 32.0 g/dL Normal 29.9-35.2 [facility] Comment on above: Performed By: #### H H #### [facility] [address] [place] [address] Dr. Ayanna Guido MCV (RBC) [Entitic vol] 93.1 fL Normal 80.0-94.0 [facility] Comment on above: Performed By: #### H H #### [facility] [address] [address] [address] Ayanna Guido PLT 165 103/ul Normal 150-450 [facility] Comment on above: Performed By: #### H H #### [facility] [address] [place] [address] Dr. Ayanna Guido RBC 4.94 106/ul Normal 4.70-6.10 [facility] Comment on above: Performed By: #### H H #### [facility] [address] [place] [address] Dr. Ayanna Guido WBC 9.7 103/ul Normal 4.0-11.0 [facility] Comment on above: Performed By: #### H H #### [facility] [address] [place] [address] Dr. Ayanna Guido PROF 14(COMP METB)on 022 Albumin [Mass/Vol] 4.0 g/dL Normal 3.4-5.0 [facility] Comment on above: Performed By: #### U RTPCR #### [facility] [address] [place] [address] Dr. Ayanna Guido Albumin/Globulin [Mass ratio] 1.0 {ratio} Normal [facility] Comment on above: Performed By: #### U RTPCR #### [facility] [address] [place] [address] Dr. Ayanna Guido ALP [Catalytic activity/Vol] 63 U/L Normal 46-116 [facility] Comment on above: Performed By: #### U RTPCR #### [facility] [address] [place] [address] Dr. Ayanna Guido ALT [Catalytic activity/Vol] 42 U/L Normal 16-63 [facility] Comment on above: Performed By: #### U RTPCR #### [facility] [address] [address] [address] Ayanna Guido Anion gap [Moles/Vol] 15.4 mmol/L Normal [facility] Comment on above: Performed By: #### U RTPCR #### [facility] [address] [address] [address] Ayanna Guido AST [Catalytic activity/Vol] 22 U/L Normal 15-37 [facility] Comment on above: Performed By: #### U RTPCR #### [facility] [address] [address] [address] Ayanna Guido Bilirubin [Mass/Vol] 0.5 mg/dL Normal 0.2-1.0 [facility] Comment on above: Performed By: #### U RTPCR #### [facility] [address] [place] [address] Dr. Ayanna Guido Calcium [Mass/Vol] 9.6 mg/dL Normal 8.5-10.1 [facility] Comment on above: Performed By: #### U RTPCR #### [facility] [address] [place] [address] Dr. Ayanna Guido Chloride [Moles/Vol] 102 mmol/L Normal 98-107 [facility] Comment on above: Performed By: #### U RTPCR #### [facility] [address] [place] [address] Dr. Ayanna Guido CO2 [Moles/Vol] 24.7 mmol/L Normal 21.0-32.0 [facility] Comment on above: Performed By: #### U RTPCR #### [facility] [address] [place] [address] Dr. Ayanna Guido Creatinine [Mass/Vol] 2.07 mg/dL Critically high 0.70-1.30 [facility] Comment on above: Performed By: #### U RTPCR #### [facility] [address] [place] [address] Dr. Ayanna Guido EGFR-AF POLISH 38 mL/min/1.73m2 Critically low >=60 [facility] Comment on above: Performed By: #### U RTPCR #### [facility] [address] [place], [place] [id number] Dr. Ayanna Guido EGFR-NON AF POLISH 32 mL/min/1.73m2 Critically low >=60 [facility] Comment on above: Performed By: #### U RTPCR #### [facility] [address] [place] [address] Dr. Ayanna Guido Globulin (S) [Mass/Vol] 4.0 g/dL Normal [facility] Comment on above: Performed By: #### U RTPCR #### [facility] [address] [address] [address] Ayanna Guido Glucose [Mass/Vol] 121 mg/dL Critically high 74-106 [facility] Comment on above: Performed By: #### U RTPCR #### [facility] [address] [place] [address] Dr. Ayanna Guido Potassium [Moles/Vol] 5.1 mmol/L Normal 3.5-5.1 [facility] Comment on above: Performed By: #### U RTPCR #### [facility] [address] [place] [address] Dr. Ayanna Guido Protein [Mass/Vol] 8.0 g/dL Normal 6.4-8.2 [facility] Comment on above: Performed By: #### U RTPCR #### [facility] [address] [place] [address] Dr. Ayanna Guido Sodium [Moles/Vol] 137 mmol/L Normal 136-145 [facility] Comment on above: Performed By: #### U RTPCR #### [facility] [address] [place] [address] Dr. Ayanna Guido Urea nitrogen [Mass/Vol] 34.0 mg/dL Critically high 7.0-18.0 [facility] Comment on above: Performed By: #### U RTPCR #### [facility] [address] [place] [address] Dr. Ayanna Guido Urea nitrogen/Creatinine [Mass ratio] 16.4 mg/mg Normal [facility] Comment on above: Performed By: #### U RTPCR #### [facility] [address] [place] [address] Dr. Ayanna Guido UA RANDOMon 01-07-2022 Bilirubin Ql (U) Negative Normal NEGATIVE [facility] Comment on above: Performed By: #### U RTPCR #### [facility] [address] [place] [address] Dr. Ayanna Guido Clarity (U) CLEAR Normal CLEAR [facility] Comment on above: Performed By: #### U RTPCR #### [facility] [address] [place] [address] Dr. Ayanna Guido Color (U) YELLOW Normal YELLOW [facility] Comment on above: Performed By: #### U RTPCR #### [facility] [address] [place] [address] Dr. Ayanna Guido Glucose Ql (U) Negative Normal NEGATIVE [facility] Comment on above: Performed By: #### U RTPCR #### [facility] [address] [place] [address] Dr. Ayanna Guido Hemoglobin Ql (U) Negative Normal NEGATIVE [facility] Comment on above: Performed By: #### U RTPCR #### [facility] [address] [place] [address] Dr. Ayanna Guido Ketones Ql (U) Negative Normal NEGATIVE [facility] Comment on above: Performed By: #### U RTPCR #### [facility] [address] [place] [address] Dr. Ayanna Guido LEUKOCYTES Negative Normal NEGATIVE [facility] Comment on above: Performed By: #### U RTPCR #### [facility] [address] [place] [address] Dr. Ayanna Guido Nitrite Ql (U) Negative Normal NEGATIVE [facility] Comment on above: Performed By: #### U RTPCR #### [facility] [address] [place] [address] Dr. Ayanna Guido pH (U) 5.5 [pH] Normal 5-9 [facility] Comment on above: Performed By: #### U RTPCR #### [facility] [address] [place] [address] Dr. Ayanna Guido SPEC GRAVITY 1.020 Normal 1.005-<=1.025 [facility] Comment on above: Performed By: #### U RTPCR #### [facility] [address] [place] [address] Dr. Ayanna Guido UA PROTEIN Negative Normal NEGATIVE/ TRACE [facility] Comment on above: Performed By: #### U RTPCR #### [facility] [address] [place] [address] Dr. Ayanna Guido Urobilinogen Qn (U) 0.2 {Sejal'U}/dL Normal 0.2 - 1. 0 [facility] Comment on above: Performed By: #### U RTPCR #### [facility] [address] [place] [address] Dr. Ayanna Guido URIC ACID SERUMon 01-07-2022 Urate [Mass/Vol] 8.7 mg/dL Critically high 3.5-7.2 [facility] Comment on above: Performed By: #### U ANDREE, CMP #### [facility] [address] [place] [address] Dr. Ayanna Guido URINE T PROTEIN CREAT RATIOo n 01-07-2022 Protein (U) [Mass/Vol] 11.2 mg/dL Normal <=12.0 [facility] Comment on above: Performed By: #### U RTPCR #### [facility] [address] [place] [address] Dr. Ayanna Guido UR PROT CREAT RAT 0.07 Normal [facility] Comment on above: Performed By: #### U RTPCR #### [facility] [address] [place] [address] Dr. Ayanna Guido URINE CREAT 172.34 mg/dL Normal 20.00-300.00 [facility] Comment on above: Performed By: #### U RTPCR #### [facility] [address] [place] [address] Dr. Ayanna Guido VITAMIN D 25 OHon 01-07-2022 VIT D 25-OH 33.4 ng/mL Normal [facility] Comment on above: Performed By: #### V ITAD #### [facility] [address] [address] [address] Ayanna Guido VIT D RANGES SEE BELOW Normal [facility] Comment on above: Result Comment: <20 ng/mL Vit D deficient 20 - <30 ng/mL Vit D insufficient 30 - 100 ng/mL Vit D sufficient >100 ng/mL Potential Toxicity Performed By: #### V ITAD #### [facility] [address] [address] [address] Ayanna Guido Vital Signs Date Time Vital Sign Value Performing Clinician Facility 01-12-2024 [id number] Body height 168.91 cm [facility] 01-12-2024 09:11-0400 Body mass index (BMI) [Ratio] 36.9 kg/m2 [facility] 01-12-2024 09:11-0400 Body temperature 97.2 [degF] [facility] 01-12-2024 09:11-0400 Body weight 105.46 kg [facility] 01-12-2024 09:11-0400 Diastolic blood pressure 94 mm[Hg] [facility] 01-12-2024 09:11-0400 Heart rate 73 /min [facility] 01-12-2024 09:11-0400 Respiratory rate 16 /min [facility] 01-12-2024 09:11-0400 SaO2% (BldA) [Mass fraction] 96 % [facility] 01-12-2024 09:11-0400 Systolic blood pressure 159 mm[Hg] [facility] 07-15-2023 09:20-0500 Body height 168.[address] [facility] [employer] Other 07-15-2023 09:20-0500 Body mass index (BMI) [Ratio] 36.28 kg/m2 [facility] Other [facility] Other 07-15-2023 09:20-0500 Body temperature 96.5 [degF] [facility] Other [facility] Other 07-15-2023 09:20-0500 Body weight 103.51 kg Aziz Bakhous Other [facility] Other 07-15-2023 09:20-0500 Diastolic blood pressure 80 mm[Hg] Aziz Bakhous Other [facility] Other 07-15-2023 09:20-0500 Respiratory rate 18 /min Aziz Bakhous Other [facility] Other 07-15-2023 09:20-0500 SaO2% (BldA) [Mass fraction] 96 % Aziz Bakhous Other [facility] Other 07-15-2023 09:20-0500 Systolic blood pressure 126 mm[Hg] Aziz Bakhous Other [facility] Other 01-27-2023 09:00-0400 Body height 168.91 cm Aziz Bakhous Other [facility] Other 01-27-2023 09:00-0400 Body mass index (BMI) [Ratio] 36.75 kg/m2 Aziz Bakhous Other [facility] Other 01-27-2023 09:00-0400 Body temperature 96.9 [degF] Aziz Bakhous Other [facility] Other 01-27-2023 09:00-0400 Body weight 104.87 kg Aziz Bakhous Other [facility] Other 01-27-2023 09:00-0400 Diastolic blood pressure 80 mm[Hg] Aziz Bakhous Other [facility] Other 01-27-2023 09:00-0400 Respiratory rate 18 /min Aziz Bakhous Other [facility] Other 01-27-2023 09:00-0400 SaO2% (BldA) [Mass fraction] 96 % Aziz Bakhous Other [facility] Other 01-27-2023 09:00-0400 Systolic blood pressure 135 mm[Hg] Aziz Bakhous Other [facility] Other 08-05-2022 10:20-0500 Body height 168.91 cm Aziz Bakhous Other [facility] Other 08-05-2022 10:20-0500 Body mass index (BMI) [Ratio] 34.69 kg/m2 Aziz Bakhous Other [facility] Other 08-05-2022 10:20-0500 Body temperature 98.5 [degF] Aziz Bakhous Other [facility] Other 08-05-2022 10:20-0500 Body weight 98.98 kg Aziz Bakhous Other [facility] Other 08-05-2022 10:20-0500 Diastolic blood pressure 88 mm[Hg] Aziz Bakhous Other [facility] Other 08-05-2022 10:20-0500 Respiratory rate 18 /min Aziz Bakhous Other [facility] Other 08-05-2022 10:20-0500 SaO2% (BldA) [Mass fraction] 97 % Azariana Bonners Other [facility] Other 08-05-2022 10:20-0500 Systolic blood pressure 139 mm[Hg] Aziz Bakhous Other [facility] Other 01-14-2022 11:00-0400 Body height 168.91 cm Azariana Bonners Other [facility] Other 01-14-2022 11:00-0400 Body mass index (BMI) [Ratio] 34.24 kg/m2 Ignacio Bonners Other [facility] Other 01-14-2022 11:00-0400 Body temperature 96.5 [degF] Ignacio Bonners Other [facility] Other 01-14-2022 11:00-0400 Body weight 97.71 kg Ignacio Bonners Other [facility] Other 01-14-2022 11:00-0400 Diastolic blood pressure 90 mm[Hg] Ignacio Bonners Other [facility] Other 01-14-2022 11:00-0400 Respiratory rate 18 /min Ignacio Bakhous Other [facility] Other 01-14-2022 11:00-0400 SaO2% (BldA) [Mass fraction] 92 % Azariana Bakhous Other [facility] Other 01-14-2022 11:00-0400 Systolic blood pressure 137 mm[Hg] Aziz Bakhous Other [facility] Other 10-15-2021 16:00-0400 Body height 168.91 cm Ignacio Bonners Other [facility] Other 10-15-2021 16:00-0400 Body mass index (BMI) [Ratio] 36.85 kg/m2 Ignacio Bonners Other [facility] Other 10-15-2021 16:00-0400 Body temperature 98.1 [degF] Ignacio Bonners Other [facility] Other 10-15-2021 16:00-0400 Body weight 105.14 kg Ignacio Bonners Other [facility] Other 10-15-2021 16:00-0400 Diastolic blood pressure 73 mm[Hg] Ignacio Bonners Other [facility] Other 10-15-2021 16:00-0400 Respiratory rate 20 /min Ignacio Bonners Other [facility] Other 10-15-2021 16:00-0400 SaO2% (BldA) [Mass fraction] 95 % Ignacio Bonners Other [facility] Other 10-15-2021 16:00-0400 Systolic blood pressure 109 mm[Hg] Ignacio Bonners Other [facility] Other Encounters Encounter Date Encounter Type Care Provider Facility Start: 01-12-2024 End: 01-12-[address] [facility] Work Phone: Start: 01-12-2024 End: 01-12-2024 Patient encounter procedure [facility] Work Phone: Start: 01-05-2024 Non-patient / Non-visit [facility] Work Phone: Start: 07-15-2023 End: 07-15-2023 ambulatory Aziz Bakhous Other [place] [facility] Other Start: 07-15-2023 Office outpatient vi sit 25 minutes Aziz Bakhous [facility] Start: 01-27-2023 End: 01-27-2023 ambulatory Aziz Bakhous Other [place] [facility] Other Start: 01-27-2023 Office outpatient vi sit 25 minutes Aziz Bakhous [facility] Start: 10-22-2022 ambulatory PRABHA ULRICH Facility: [facility] Start: 08-05-2022 End: 08-05-2022 ambulatory Aziz Bakhous Other [place] [employer] Other Start: 08-05-2022 Office outpatient vi sit 15 minutes Aziz Bakhous [facility] Start: 07-29-2022 End: 07-30-2022 ambulatory AZIZ BAKHOUS Facility:[facility] Start: 01-14-2022 End: 01-14-2022 ambulatory Aziz Bakhous Other [place] [facility] Other Start: 01-14-2022 Office outpatient vi sit 15 minutes Aziz Bakhous [facility] Start: 01-07-2022 End: 01-08-[address] DOCTOR MEDRANO Facility:[facility] Start: 10-15-2021 End: 10-15-2021 ambulatory Aziz Bakhous Other [facility] Other Start: 10-15-2021 Office outpatient ne w 30 minutes Aziz Bakhous [facility] Plan of Treatment Date Care Activity Detail Author Renal function 1999 panel - Serum or Plasma [facility] Payers Date Payer Category Payer Medicare [id number] 1957 Self-pay [id number] 1945 Unknown [id number] 1945 Unknown [id number] 1945 Unknown [id number] Unknown [id number] Social History Date Type Detail Facility Unknown if ever smoked [facility] [employer] Other Sex Assigned At Sex Assigned At Bir th [facility] Other Start: 01-12-2024 Tobacco smoking status NHIS Ex-smoker (finding) [facility] Start: 1945 Sex Assigned At Male F [facility] Evaluation note 07-15-2023 Note Date & Type [...] the patient to take OTC VD supplement [id number] U PO daily [facility] Other Evaluation note 01-27-2023 Note Date & [...] level is within normal limit this visit. [facility] Other Evaluation note 08-05-2022 Note Date & [...] next visit Jul, Hypomagnesemia (ICD-10 - E83.42) [facility] Other Evaluation note 01-14-2022 Note Date & [...] protein diet. Recheck uric acid next visit [facility] Other Evaluation note 10-15-2021 Note Date & [...] E78.5) Follow with PCP. Already on statin [facility] Other Evaluation note Note Date & Type Note Facility Evaluation note Diagnosis Onset Date Anemia of renal disease acut e Chronic kidney disease, stage 3b acute Hyperlipidemia acute Hypertensive nephropathy acu te Hyperuricemia acute Hypomagnesemia acute Obesity (BMI 30-39.9) acute Vitamin D deficiency acute [facility] Work Phone: History general Narrative - Reported Note Date & Type Note Facility History general Narrative - Reported Type Medical History HYPERTENSION Medical History HYPERLIPIDEMIA Medical History SEASONAL ALLERGIES Medical History SLEEP APNEA Surgical History CARPAL TUNNEL RELEASE X 2 Surgical History THROAT SURGERY FOR SLEEP APNEA [facility] Other Summary Purpose Family History Relationship Condition Age at Onset Recorded Date/T sherry brother Hypertension Unknown Heart disease Unknown Diabetes mellitus Unknown Unknown father Unknown Hypertension Unknown Family history of mental disorder Unknown mother Diabetes mellitus Unknown History of stroke Unknown Malignant neoplasm Unknown Advance Directives Advance Directive Response Recorded Date/ Time Advance Directives No August 17, 2023 9:27am Chief Complaint and Reason for Visit Chief Complaint RENAL 6 month f/u Reason for Visit Anemia of renal dise ase Chronic kidney disease, stage 3b Hyperlipidemia Hypertensive nephropathy Hyperuricemia Hypomagnesemia Obesity (BMI 30-39.9) Vitamin D deficiency Additional Source Comments REASON FOR VISIT (unrecogniz ed section and content) RENAL WORSENING RENAL FUNCTI ONRENAL 3 month Follow upRENAL 6 month Follow upRENAL 6 month Follow upRENAL 6 month Follow up (unrecognized sect ion and content) No Status Records Found INFORMATION SOURCE (unrecogn ized section and content) DATE CREATED AUTHOR 10/22/2022 [facility] Care Teams (unrecognized sec tion and content) Team Status: Active Member Role Status Dates ALLAN Gamboa Primary Care Provider Active Team Status: Active Member Role Status Dates ALLAN Gamboa Primary Care Provider Active Start: January 05, 2024 Ignacio Olivares MD Attending Provider Active Star t: January 05, 2024 Team Status: Inactive Member Role Status Dates ALLAN Gamboa Primary Care Provider Active Start: January 12, 2024 End: January 12, 2024 Ignacio Olivares MD Attending Provider Active Star t: January 12, 2024 End: January 12, 2024 Goals (unrecognized section and content) Goals may be documented in a n alternate section FOR RECORDS PERTAINING TO PATIENTS WHO ARE [...] BE BASED ON THE PRIMARY CLINICAL RECORDS. [employer] provides no warranty or guarantee of the accuracy or completeness of information in this document.
[2024-07-08 08:47] LABS: Bilirubin Urine NEGATIVE (NEGATIVE); Blood Urine NEGATIVE (NEGATIVE); Clarity Urine CLEAR (CLEAR); Color Urine YELLOW (YELLOW); Glucose Urine UA NEGATIVE (NEGATIVE); Ketones Urine NEGATIVE (NEGATIVE); Leukocyte Esterase Urine NEGATIVE (NEGATIVE); Nitrite Urine NEGATIVE (NEGATIVE); Protein Urine TRACE mg/dL (NEG/TRACE); Specific Gravity Urine 1.025 (1.005-1.025); Urobilinogen Urine 0.2 EU/dL (0.2-1.0); pH Urine 5.5 (5.0-9.0)
[2024-07-08 08:56] LABS: Hematocrit 45.9 % (42.0-54.0); Hemoglobin 14.4 g/dL (14.0-18.0); Mean Corpuscular HGB Conc 31.4 g/dL (29.9-35.2); Mean Corpuscular Hemoglobin 29.8 pg (25.9-34.0); Mean Platelet Volume 11.5 fL (9.5-13.5); Platelet Count 162 10^3/uL (150-450); Red Blood Count 4.83 10^6/uL (4.70-6.10); Red Cell Distribution Width 13.5 % (11.0-15.0); White Blood Count 9.1 10^3/uL (4.0-11.0)
[2024-07-08 09:24] LABS: Creatinine Urine Random 206.57 mg/dL (20.00-300.00); Microalbum Creatinine Ratio Ur 58.5 mg/g (0.0-29.9); Microalbumin Urine Random 12.1 mg/dL (<=30.0); Protein Creatinine Ratio Urine 0.17; Total Protein Urine Random 35.5 mg/dL (<=11.9)
[2024-07-08 09:49] LABS: Albumin Level 3.7 g/dL (3.4-5.0); Anion Gap 14.1; BUN Creatinine Ratio 13.5; Calcium 9.4 mg/dL (8.5-10.1); Carbon Dioxide 26.2 mmol/L (21.0-32.0); Chloride 105 mmol/L (98-107); Estimated GFR (African America 41 (>=60 mL/min/1.73m^2); Estimated GFR (Non-African Ame 34 (>=60 mL/min/1.73m^2); Glucose 126 mg/dL (74-106); Magnesium 1.8 mg/dL (1.8-2.4); Phosphorus 3.4 mg/dL (2.6-4.7); Potassium 4.3 mmol/L (3.5-5.1); Sodium 141 mmol/L (136-145); Uric Acid 6.9 mg/dL (3.5-7.2)
[2024-07-10 11:06] LABS: PTH, Intact 46 pg/mL (15-65)
== END 2024-07-08 08:11 | disposition home or self-care (01) ==
LOC: LAB 08:11
PROVIDERS: PCP Nurse Practitioner Family; Visit Provider Internal Medicine Nephrology
DX: E78.5 Hyperlipidemia, unspecified (principal); E55.9 Vitamin D deficiency, unspecified; E66.9 Obesity, unspecified; D63.1 Anemia in chronic kidney disease; E83.42 Hypomagnesemia; E79.0 Hyperuricemia without signs of inflammatory arthritis and tophaceous disease; Z68.30 Body mass index [BMI] 30.0-30.9, adult; N18.32 Chronic kidney disease, stage 3b
CPT/HCPCS: 36415; 80061; 80069; 81003; 82043; 82306; 82570; 83735; 83970; 84156; 84550; 85027

== ENCOUNTER 2024-07-08 08:17 | Outpatient (OUT) | payer MEDICARE, SELFPAY ==
--- OUTSIDE RECORDS SUMMARY | 2024-07-08 08:41 | XMS_ITS | CCD ---
Author Organization [facility] CliniSyil Care Team Providers Care Transitional Care Nurse Name Role Phone Ignacio Olivares Unavailable PRAHBA ULRICH Admitting Unavailable PRABHA ULRICH Attending Unavailable [...] distribution width (RBC) [Ratio] 14.4 % 11.0-15.0 [facility] Estimated glomerular filtrat ion rate (GFR) non- Americanon 01-05-2024 GFR/1.73 sq M.predicted among non-blacks MDRD (S/P/Bld) [Vol rate/Area] 35 mL/min/{1.73_m2} Low >=60 [facility] Globulin Calc (S) [Mass/Vol] on 01-05-2024 Globulin (S) [Mass/Vol] 3.9 g/dL [facility] Hematocrit Auto (Bld) [Volum e fraction]on 01-05-2024 Hematocrit (Bld) [Volume fraction] 45.8 % 42.0-54.0 [facility] Hemoglobin [Mass/volume] in Bloodon 01-05-2024 Hemoglobin (Bld) [Mass/Vol] 14.7 g/dL 14.0-18.0 [facility] Iron binding capacity [Mass/ volume] in Serum or Plasmaon 01-05-2024 Iron binding capacity [Mass/Vol] 333.0 ug/dL 250.0-450.0 [facility] Iron saturation [Mass Fracti on] in Serum or Plasmaon 01-05-2024 Iron saturation [Mass fraction] 22.8 % [facility] Laboratory - Chemistry and C hemistry - challengeon 01-05-2024 Albumin [Mass/Vol] 3.6 g/dL 3.4-5.0 [facility] ALP [Catalytic activity/Vol] 77 U/L 46-116 [facility] ALT [Catalytic activity/Vol] 51 U/L 16-63 [facility] AST [Catalytic activity/Vol] 27 U/L 15-37 [facility] Bilirubin [Mass/Vol] 0.4 mg/dL 0.2-1.0 [facility] Calcium [Mass/Vol] 9.2 mg/dL 8.5-10.1 [facility] Chloride [Moles/Vol] 105 mmol/L 98-107 [facility] CO2 [Moles/Vol] 25.4 mmol/L 21.0-32.0 [facility] Cobalamin (Vitamin B12) [Mass/Vol] 444.0 pg/mL 193.0-986.0 [facility] Creatinine [Mass/Vol] 1.90 mg/dL High 0.70-1.30 [facility] Ferritin [Mass/Vol] 255.0 ng/mL 26.0-388.0 [facility] GFR/1.73 sq M.predicted MDRD (S/P/Bld) [Vol rate/Area] 42 mL/min/{1.73_m2} Low >=60 [facility] Glucose [Mass/Vol] 132 mg/dL High 74-106 [facility] Iron [Mass/Vol] 76.0 ug/dL 65.0-175.0 [facility] Magnesium [Mass/Vol] 2.1 mg/dL 1.8-2.4 [facility] Potassium [Moles/Vol] 4.6 mmol/L 3.5-5.1 [facility] Protein [Mass/Vol] 7.5 g/dL 6.4-8.2 [facility] Sodium [Moles/Vol] 140 mmol/L 136-145 [facility] Urate [Mass/Vol] 7.3 mg/dL High 3.5-7.2 [facility] Urea nitrogen [Mass/Vol] 24.0 mg/dL High 7.0-18.0 [facility] Urea nitrogen/Creatinine [Mass ratio] 12.6 mg/mg [facility] Laboratory - Urinalysison Protein (U) [Mass/Vol] 24.7 mg/dL High <=11.9 [facility] Leukocytes [#/volume] correc zana for nucleated erythrocytes in Blood by Automated counon 01-05-2024 WBC corrected for nucl RBC Auto (Bld) [#/Vol] 9.8 10 3/uL 4.0-11.0 [facility] MCH Auto (RBC) [Entitic mass ]on 01-05-2024 MCH (RBC) [Entitic mass] 30.0 pg 25.9-34.0 [facility] MCHC Auto (RBC) [Mass/Vol]on 01-05-2024 MCHC (RBC) [Mass/Vol] 32.1 g/dL 29.9-35.2 [facility] MCV Auto (RBC) [Entitic vol] on 01-05-2024 MCV (RBC) [Entitic vol] 93.5 fL 80.0-94.0 [facility] No Panel Informationon 01-04 25-Hydroxy Vitamin D Total 50.3 ng/mL [facility] Comment on above: <20 ng/mL Vit D defi cient20-<30 ng/mL Vit D [id number] ng/mL Vit D sufficient>100 ng/mL Potential Toxicity Folate 13.40 ng/mL 8.60-58.90 [facility] Parathyroid Hormone (Intact) 42 pg/mL 15-65 [facility] Comment on above: Performed at: [address] [id number] Director: Joce Shepherd PhD, Phone: [phone] Phosphorus Level 4.0 mg/dL 2.6-4.7 [facility] Urine Random Creatinine 135.65 mg/dL 20.00-300.00 [facility] Platelet mean volume Auto (B ld) [Entitic vol]on 01-05-2024 Platelet mean volume (Bld) [Entitic vol] 11.9 fL 9.5-13.5 [facility] Platelets Auto (Bld) [#/Vol] on 01-05-2024 Platelets (Bld) [#/Vol] 158 10 3/uL 150-450 [facility] RBC Auto (Bld) [#/Vol]on RBC (Bld) [#/Vol] 4.90 10 6/uL 4.70-6.10 [facility] Serum or plasma albumin/glob ulin mass ratioon 01-05-2024 Albumin/Globulin [Mass ratio] 0.9 {ratio} [facility] Serum or plasma anion gap de terminationon 01-05-2024 Anion gap [Moles/Vol] 14.2 [facility] protein/creatinine rat ioon 01-05-2024 Protein/Creatinine (U) [Ratio] 0.18 [facility] PTH INTACTon 07-30-2022 PTH, Intact 48 pg/mL Normal 15-65 [facility] Comment on above: Performed By: #### U RTPCR #### [facility] [address] [place] [address] Dr. Ayanna Guido HEMOGRAM AND PLATELon 2022 Hematocrit (Bld) [Volume fraction] 44.6 % Normal 42.0-54.0 [facility] Comment on above: Performed By: #### H H #### [facility] [address] [address] [address] Ayanna Guido Hemoglobin (Bld) [Mass/Vol] 14.5 g/dL Normal 14.0-18.0 [facility] Comment on above: Performed By: #### H H #### [facility] [address] [place] [address] Dr. Ayanna Guido MCH (RBC) [Entitic mass] 29.8 pg Normal 25.9-34.0 [facility] Comment on above: Performed By: #### H H #### [facility] [address] [address] [address] Ayanna Guido MCHC (RBC) [Mass/Vol] 32.5 g/dL Normal 29.9-35.2 [facility] Comment on above: Performed By: #### H H #### [facility] [address] [place] [address] Dr. Ayanna Guido MCV (RBC) [Entitic vol] 91.6 fL Normal 80.0-94.0 [facility] Comment on above: Performed By: #### H H #### [facility] [address] [place] [address] Dr. Ayanna Guido PLT 171 103/ul Normal 150-450 [facility] Comment on above: Performed By: #### H H #### [facility] [address] [place] [address] Dr. Ayanna Guido RBC 4.87 106/ul Normal 4.70-6.10 [facility] Comment on above: Performed By: #### H H #### [facility] [address] [place] [address] Dr. Ayanna Guido WBC 9.7 103/ul Normal 4.0-11.0 [facility] Comment on above: Performed By: #### H H #### [facility] [address] [place] [address] Dr. Ayanna Guido MAGNESIUMon 07-29-2022 Magnesium [Mass/Vol] 1.7 mg/dL Critically low 1.8-2.4 [facility] Comment on above: Performed By: #### M G, CMP #### [facility] [address] [place] [address] Dr. Ayanna Guido PROF 14(COMP METB)on 023 Albumin [Mass/Vol] 3.9 g/dL Normal 3.4-5.0 [facility] Comment on above: Performed By: #### M G, CMP #### [facility] [address] [place] [address] Dr. Ayanna Guido Albumin/Globulin [Mass ratio] 1.1 {ratio} Normal [facility] Comment on above: Performed By: #### M G, CMP #### [facility] [address] [address] [address] Ayanna Guido ALP [Catalytic activity/Vol] 71 U/L Normal 46-116 [facility] Comment on above: Performed By: #### M G, CMP #### [facility] [address] [address] [address] Ayanna Guido ALT [Catalytic activity/Vol] 36 U/L Normal 16-63 [facility] Comment on above: Performed By: #### M G, CMP #### [facility] [address] [address] [address] Ayanna Guido Anion gap [Moles/Vol] 17.2 mmol/L Normal [facility] Comment on above: Performed By: #### M G, CMP #### [facility] [address] [place] [address] Dr. Ayanna Guido AST [Catalytic activity/Vol] 22 U/L Normal 15-37 [facility] Comment on above: Performed By: #### M G, CMP #### [facility] [address] [address] [address] Ayanna Guido Bilirubin [Mass/Vol] 0.3 mg/dL Normal 0.2-1.0 [facility] Comment on above: Performed By: #### M G, CMP #### [facility] [address] [address] [address] Ayanna Guido Calcium [Mass/Vol] 9.6 mg/dL Normal 8.5-10.1 [facility] Comment on above: Performed By: #### M G, CMP #### [facility] [address] [address] [address] Ayanna Guido Chloride [Moles/Vol] 102 mmol/L Normal 98-107 [facility] Comment on above: Performed By: #### M G, CMP #### [facility] [address] [address] [address] Ayanna Guido CO2 [Moles/Vol] 24.0 mmol/L Normal 21.0-32.0 [facility] Comment on above: Performed By: #### M G, CMP #### [facility] [address] [address] [address] Ayanna Guido Creatinine [Mass/Vol] 1.89 mg/dL Critically high 0.70-1.30 [facility] Comment on above: Performed By: #### M G, CMP #### [facility] [address] [address] [address] Ayanna Guido EGFR-AF ZIMBABWEAN 42 mL/min/1.73m2 Critically low >=60 [facility] Comment on above: Performed By: #### M G, CMP #### [facility] [address] [address] [address] Ayanna Guido EGFR-NON AF ZIMBABWEAN 35 mL/min/1.73m2 Critically low >=60 [facility] Comment on above: Performed By: #### M G, CMP #### [facility] [address] [address] [address] Ayanna Guido Globulin (S) [Mass/Vol] 3.6 g/dL Normal [facility] Comment on above: Performed By: #### M G, CMP #### [facility] [address] [address] [address] Ayanna Guido Glucose [Mass/Vol] 123 mg/dL Critically high 74-106 [facility] Comment on above: Performed By: #### M G, CMP #### [facility] [address] [address] [address] Ayanna Guido Potassium [Moles/Vol] 4.2 mmol/L Normal 3.5-5.1 [facility] Comment on above: Performed By: #### M G, CMP #### [facility] [address] [address] [address] Ayanna Guido Protein [Mass/Vol] 7.5 g/dL Normal 6.4-8.2 [facility] Comment on above: Performed By: #### M G, CMP #### [facility] [address] [address] [address] Ayanna Guido Sodium [Moles/Vol] 139 mmol/L Normal 136-145 [facility] Comment on above: Performed By: #### M G, CMP #### [facility] [address] [address] [address] Ayanna Giudo Urea nitrogen [Mass/Vol] 37.0 mg/dL Critically high 7.0-18.0 [facility] Comment on above: Performed By: #### M G, CMP #### [facility] [address] [address] [address] Ayanna Guido Urea nitrogen/Creatinine [Mass ratio] 19.6 mg/mg Normal [facility] Comment on above: Performed By: #### M G, CMP #### [facility] [address] [place] [address] Dr. Ayanna Guido UA RANDOMon 07-29-2022 Bilirubin Ql (U) Negative Normal NEGATIVE [facility] Comment on above: Performed By: #### U RTPCR #### [facility] [address] [place] [address] Dr. Ayanna Guido Clarity (U) CLEAR Normal CLEAR [facility] Comment on above: Performed By: #### U RTPCR #### [facility] [address] [place] [address] Dr. Ayanna Guido Color (U) LT. YELLOW Normal YELLOW [facility] Comment on above: Performed By: #### U RTPCR #### [facility] [address] [place] [address] Dr. Ayanna Guido Glucose Ql (U) Negative Normal NEGATIVE [facility] Comment on above: Performed By: #### U RTPCR #### [facility] [address] [place] [address] Dr. Ayanna Guido Hemoglobin Ql (U) Negative Normal NEGATIVE [facility] Comment on above: Performed By: #### U RTPCR #### [facility] [address] [place] [address] Dr. Ayanna Guido Ketones Ql (U) Negative Normal NEGATIVE [facility] Comment on above: Performed By: #### U RTPCR #### [facility] [address] [place] [address] Dr. Ayanna Guido LEUKOCYTES Negative Normal NEGATIVE [facility] Comment on above: Performed By: #### U RTPCR #### [facility] [address] [address] [address] Ayanna Guido Nitrite Ql (U) Negative Normal NEGATIVE [facility] Comment on above: Performed By: #### U RTPCR #### [facility] [address] [place] [address] Dr. Ayanna Guido pH (U) 5.5 [pH] Normal 5-9 [facility] Comment on above: Performed By: #### U RTPCR #### [facility] [address] [address] [address] Ayanna Guido SPEC GRAVITY 1.025 Normal 1.005-<=1.025 [facility] Comment on above: Performed By: #### U RTPCR #### [facility] [address] [place] [address] Dr. Ayanna Guido UA PROTEIN Negative Normal NEGATIVE/ TRACE [facility] Comment on above: Performed By: #### U RTPCR #### [facility] [address] [place] [address] Dr. Ayanna Guido Urobilinogen Qn (U) 0.2 {Sejal'U}/dL Normal 0.2 - 1. 0 [facility] Comment on above: Performed By: #### U RTPCR #### [facility] [address] [place] [address] Dr. Ayanna Guido URINE T PROTEIN CREAT RATIOo n 07-29-2022 Protein (U) [Mass/Vol] 19.1 mg/dL Critically high <=12.0 [facility] Comment on above: Performed By: #### U RTPCR #### [facility] [address] [place] [address] Dr. Ayanna Guido UR PROT CREAT RAT 0.09 Normal [facility] Comment on above: Performed By: #### U RTPCR #### [facility] [address] [place] [address] Dr. Ayanna Guido URINE CREAT 208.17 mg/dL Normal 20.00-300.00 [facility] Comment on above: Performed By: #### U RTPCR #### [facility] [address] [place] [address] Dr. Ayanna Guido VITAMIN D 25 OHon 07-29-2022 VIT D 25-OH 33.7 ng/mL Normal [facility] Comment on above: Performed By: #### V ITAD #### [facility] [address] [place] [address] Dr. Ayanna Guido VIT D RANGES SEE BELOW Normal [facility] Comment on above: Result Comment: <20 ng/mL Vit D deficient 20 - <30 ng/mL Vit D insufficient 30 - 100 ng/mL Vit D sufficient >100 ng/mL Potential Toxicity Performed By: #### V ITAD #### [facility] [address] [place] [address] Dr. Ayanna Guido PTH INTACTon 01-08-2022 PTH, Intact 55 pg/mL Normal 15-65 [facility] Comment on above: Performed By: #### P THINT #### [facility] [address] [place] [address] Dr. Ayanna Guido HEMOGRAM AND PLATELon 2021 Hematocrit (Bld) [Volume fraction] 46.0 % Normal 42.0-54.0 [facility] Comment on above: Performed By: #### H H #### [facility] [address] [place] [address] Dr. Ayanna Guido Hemoglobin (Bld) [Mass/Vol] 14.7 g/dL Normal 14.0-18.0 [facility] Comment on above: Performed By: #### H H #### [facility] [address] [place] [address] Dr. Ayanna Guido MCH (RBC) [Entitic mass] 29.8 pg Normal 25.9-34.0 [facility] Comment on above: Performed By: #### H H #### [facility] [address] [place] [address] Dr. Ayanna Guido MCHC (RBC) [Mass/Vol] 32.0 g/dL Normal 29.9-35.2 [facility] Comment on above: Performed By: #### H H #### [facility] [address] [place] [address] Dr. Ayanna Guido MCV (RBC) [Entitic vol] 93.1 fL Normal 80.0-94.0 [facility] Comment on above: Performed By: #### H H #### [facility] [address] [address] [address] Ayanna Guido PLT 165 103/ul Normal 150-450 [facility] Comment on above: Performed By: #### H H #### [facility] [address] [place] [address] Dr. Ayanna Guido RBC 4.94 106/ul Normal 4.70-6.10 [facility] Comment on above: Performed By: #### H H #### [facility] [address] [place] [address] Dr. Ayanna Guido WBC 9.7 103/ul Normal 4.0-11.0 [facility] Comment on above: Performed By: #### H H #### [facility] [address] [place] [address] Dr. Ayanna Guido PROF 14(COMP METB)on 022 Albumin [Mass/Vol] 4.0 g/dL Normal 3.4-5.0 [facility] Comment on above: Performed By: #### U RTPCR #### [facility] [address] [place] [address] Dr. Ayanna Guido Albumin/Globulin [Mass ratio] 1.0 {ratio} Normal [facility] Comment on above: Performed By: #### U RTPCR #### [facility] [address] [place] [address] Dr. Ayanna Guido ALP [Catalytic activity/Vol] 63 U/L Normal 46-116 [facility] Comment on above: Performed By: #### U RTPCR #### [facility] [address] [place] [address] Dr. Ayanna Guido ALT [Catalytic activity/Vol] 42 U/L Normal 16-63 [facility] Comment on above: Performed By: #### U RTPCR #### [facility] [address] [address] [address] Ayanna Guido Anion gap [Moles/Vol] 15.4 mmol/L Normal [facility] Comment on above: Performed By: #### U RTPCR #### [facility] [address] [address] [address] Ayanna Guido AST [Catalytic activity/Vol] 22 U/L Normal 15-37 [facility] Comment on above: Performed By: #### U RTPCR #### [facility] [address] [address] [address] Ayanna Guido Bilirubin [Mass/Vol] 0.5 mg/dL Normal 0.2-1.0 [facility] Comment on above: Performed By: #### U RTPCR #### [facility] [address] [place] [address] Dr. Ayanna Guido Calcium [Mass/Vol] 9.6 mg/dL Normal 8.5-10.1 [facility] Comment on above: Performed By: #### U RTPCR #### [facility] [address] [place] [address] Dr. Ayanna Guido Chloride [Moles/Vol] 102 mmol/L Normal 98-107 [facility] Comment on above: Performed By: #### U RTPCR #### [facility] [address] [place] [address] Dr. Ayanna Guido CO2 [Moles/Vol] 24.7 mmol/L Normal 21.0-32.0 [facility] Comment on above: Performed By: #### U RTPCR #### [facility] [address] [place] [address] Dr. Ayanna Guido Creatinine [Mass/Vol] 2.07 mg/dL Critically high 0.70-1.30 [facility] Comment on above: Performed By: #### U RTPCR #### [facility] [address] [place] [address] Dr. Ayanna Guido EGFR-AF ZIMBABWEAN 38 mL/min/1.73m2 Critically low >=60 [facility] Comment on above: Performed By: #### U RTPCR #### [facility] [address] [place], [place] [address] Dr. Ayanna Guido EGFR-NON AF ZIMBABWEAN 32 mL/min/1.73m2 Critically low >=60 [facility] Comment on above: Performed By: #### U RTPCR #### [facility] [address] [place] [address] Dr. Ayanna Guido Globulin (S) [Mass/Vol] 4.0 g/dL Normal [facility] Comment on above: Performed By: #### U RTPCR #### [facility] [address] [address] [address] Ayanna Guido Glucose [Mass/Vol] 121 mg/dL Critically high 74-106 [facility] Comment on above: Performed By: #### U RTPCR #### [facility] [address] [place] [address] Dr. Ayanna Guido Potassium [Moles/Vol] 5.1 mmol/L Normal 3.5-5.1 [facility] Comment on above: Performed By: #### U RTPCR #### [facility] [address] [place] [address] Dr. Ayanna Guido Protein [Mass/Vol] 8.0 g/dL Normal 6.4-8.2 [facility] Comment on above: Performed By: #### U RTPCR #### [facility] [address] [place] [address] Dr. Ayanna Guido Sodium [Moles/Vol] 137 mmol/L Normal 136-145 [facility] Comment on above: Performed By: #### U RTPCR #### [facility] [address] [place] [address] Dr. Ayanna Guido Urea nitrogen [Mass/Vol] 34.0 mg/dL Critically high 7.0-18.0 [facility] Comment on above: Performed By: #### U RTPCR #### [facility] [address] [place] [address] Dr. Ayanna Guido Urea nitrogen/Creatinine [Mass ratio] 16.4 mg/mg Normal [facility] Comment on above: Performed By: #### U RTPCR #### [facility] [address] [place] [address] Dr. Ayanna Guido UA RANDOMon 01-07-2022 Bilirubin Ql (U) Negative Normal NEGATIVE [facility] Comment on above: Performed By: #### U RTPCR #### [facility] [address] [place] [address] Dr. Ayanna Guido Clarity (U) CLEAR Normal CLEAR [facility] Comment on above: Performed By: #### U RTPCR #### [facility] [address] [place] [address] Dr. Ayanna Guido Color (U) YELLOW Normal YELLOW [facility] Comment on above: Performed By: #### U RTPCR #### [facility] [address] [place] [address] Dr. Ayanna Guido Glucose Ql (U) Negative Normal NEGATIVE [facility] Comment on above: Performed By: #### U RTPCR #### [facility] [address] [place] [address] Dr. Ayanna Guido Hemoglobin Ql (U) Negative Normal NEGATIVE [facility] Comment on above: Performed By: #### U RTPCR #### [facility] [address] [place] [address] Dr. Ayanna Guido Ketones Ql (U) Negative Normal NEGATIVE [facility] Comment on above: Performed By: #### U RTPCR #### [facility] [address] [place] [address] Dr. Ayanna Guido LEUKOCYTES Negative Normal NEGATIVE [facility] Comment on above: Performed By: #### U RTPCR #### [facility] [address] [place] [address] Dr. Ayanna Guido Nitrite Ql (U) Negative Normal NEGATIVE [facility] Comment on above: Performed By: #### U RTPCR #### [facility] [address] [place] [address] Dr. Ayanna Guido pH (U) 5.5 [pH] Normal 5-9 [facility] Comment on above: Performed By: #### U RTPCR #### [facility] [address] [place] [address] Dr. Ayanna Guido SPEC GRAVITY 1.020 Normal 1.005-<=1.025 [facility] [place] Comment on above: Performed By: #### U RTPCR #### [facility] [address] [place] [address] Dr. Ayanna Guido UA PROTEIN Negative Normal NEGATIVE/ TRACE [facility] Comment on above: Performed By: #### U RTPCR #### [facility] [address] [place] [address] Dr. Ayanna Guido Urobilinogen Qn (U) 0.2 {Sejal'U}/dL Normal 0.2 - 1. 0 [facility] Comment on above: Performed By: #### U RTPCR #### [facility] [address] [place] [address] Dr. Ayanna Guido URIC ACID SERUMon 01-07-2022 Urate [Mass/Vol] 8.7 mg/dL Critically high 3.5-7.2 [facility] Comment on above: Performed By: #### U ANDREE, CMP #### [facility] [address] [place] [address] Dr. Ayanna Guido URINE T PROTEIN CREAT RATIOo n 01-07-2022 Protein (U) [Mass/Vol] 11.2 mg/dL Normal <=12.0 [facility] Comment on above: Performed By: #### U RTPCR #### [facility] [address] [place] [address] Dr. Ayanna Guido UR PROT CREAT RAT 0.07 Normal [facility] Comment on above: Performed By: #### U RTPCR #### [facility] [address] [place] [address] Dr. Ayanna Guido URINE CREAT 172.34 mg/dL Normal 20.00-300.00 [facility] Comment on above: Performed By: #### U RTPCR #### [facility] [address] [place] [address] Dr. Ayanna Guido VITAMIN D 25 OHon 01-07-2022 VIT D 25-OH 33.4 ng/mL Normal [facility] Comment on above: Performed By: #### V ITAD #### [facility] [address] [address] [address] Ayanna Guido VIT D RANGES SEE BELOW Normal [facility] Comment on above: Result Comment: <20 ng/mL Vit D deficient 20 - <30 ng/mL Vit D insufficient 30 - 100 ng/mL Vit D sufficient >100 ng/mL Potential Toxicity Performed By: #### V ITAD #### [facility] [address] [address] [address] Ayanna Guido Vital Signs Date Time Vital Sign Value Performing Clinician Facility 01-12-2024 [id number] Body height 168.91 cm [facility] 01-12-2024 09:11-0400 Body mass index (BMI) [Ratio] 36.9 kg/m2 [facility] 01-12-2024 09:11-0400 Body temperature 97.2 [degF] [facility] 01-12-2024 09:11-0400 Body weight 105.46 kg [facility] 01-12-2024 09:11-0400 Diastolic blood pressure 94 mm[Hg] [facility] 01-12-2024 09:11-0400 Heart rate 73 /min [facility] 01-12-2024 09:11-0400 Respiratory rate 16 /min [facility] 01-12-2024 09:11-0400 SaO2% (BldA) [Mass fraction] 96 % [facility] 01-12-2024 09:11-0400 Systolic blood pressure 159 mm[Hg] [facility] 07-15-2023 09:20-0500 Body height 168.91 cm [employer] Other [facility] Other 07-15-2023 09:20-0500 Body mass index (BMI) [Ratio] 36.28 kg/m2 [employer] Other [employer] Other 07-15-2023 09:20-0500 Body temperature 96.5 [degF] [employer] Other [employer] Other 07-15-2023 09:20-0500 Body weight 103.51 kg Aziz Bakhous Other [employer] Other 07-15-2023 09:20-0500 Diastolic blood pressure 80 mm[Hg] Aziz Bakhous Other [employer] Other 07-15-2023 09:20-0500 Respiratory rate 18 /min Aziz Bakhous Other [employer] Other 07-15-2023 09:20-0500 SaO2% (BldA) [Mass fraction] 96 % Aziz Bakhous Other [employer] Other 07-15-2023 09:20-0500 Systolic blood pressure 126 mm[Hg] Aziz Bakhous Other [employer] Other 01-27-2023 09:00-0400 Body height 168.91 cm Aziz Bakhous Other [employer] Other 01-27-2023 09:00-0400 Body mass index (BMI) [Ratio] 36.75 kg/m2 Aziz Bakhous Other [employer] Other 01-27-2023 09:00-0400 Body temperature 96.9 [degF] Aziz Bakhous Other [employer] Other 01-27-2023 09:00-0400 Body weight 104.87 kg Aziz Bakhous Other [employer] Other 01-27-2023 09:00-0400 Diastolic blood pressure 80 mm[Hg] Aziz Bakhous Other [employer] Other 01-27-2023 09:00-0400 Respiratory rate 18 /min Aziz Bakhous Other [employer] Other 01-27-2023 09:00-0400 SaO2% (BldA) [Mass fraction] 96 % Aziz Bakhous Other [employer] Other 01-27-2023 09:00-0400 Systolic blood pressure 135 mm[Hg] Aziz Bakhous Other [employer] Other 08-05-2022 10:20-0500 Body height 168.91 cm Aziz Bakhous Other [employer] Other 08-05-2022 10:20-0500 Body mass index (BMI) [Ratio] 34.69 kg/m2 Aziz Bakhous Other [employer] Other 08-05-2022 10:20-0500 Body temperature 98.5 [degF] Aziz Bakhous Other [employer] Other 08-05-2022 10:20-0500 Body weight 98.98 kg Aziz Bakhous Other [employer] Other 08-05-2022 10:20-0500 Diastolic blood pressure 88 mm[Hg] Aziz Bakhous Other [employer] Other 08-05-2022 10:20-0500 Respiratory rate 18 /min Aziz Bakhous Other [employer] Other 08-05-2022 10:20-0500 SaO2% (BldA) [Mass fraction] 97 % Azariana Bonners Other [employer] Other 08-05-2022 10:20-0500 Systolic blood pressure 139 mm[Hg] Aziz Bakhous Other [employer] Other 01-14-2022 11:00-0400 Body height 168.91 cm Azariana Bonners Other [employer] Other 01-14-2022 11:00-0400 Body mass index (BMI) [Ratio] 34.24 kg/m2 Ignacio Bonners Other [employer] Other 01-14-2022 11:00-0400 Body temperature 96.5 [degF] Ignacio Bonners Other [employer] Other 01-14-2022 11:00-0400 Body weight 97.71 kg Ignacio Bonners Other [employer] Other 01-14-2022 11:00-0400 Diastolic blood pressure 90 mm[Hg] Ignacio Bonners Other [employer] Other 01-14-2022 11:00-0400 Respiratory rate 18 /min Ignacio Bakhous Other [employer] Other 01-14-2022 11:00-0400 SaO2% (BldA) [Mass fraction] 92 % Azariana Bakhous Other [employer] Other 01-14-2022 11:00-0400 Systolic blood pressure 137 mm[Hg] Aziz Bakhous Other [employer] Other 10-15-2021 16:00-0400 Body height 168.91 cm Ignacio Bonners Other [employer] Other 10-15-2021 16:00-0400 Body mass index (BMI) [Ratio] 36.85 kg/m2 Ignacio Bonners Other [employer] Other 10-15-2021 16:00-0400 Body temperature 98.1 [degF] Ignacio Bonners Other [employer] Other 10-15-2021 16:00-0400 Body weight 105.14 kg Ignacio Bonners Other [employer] Other 10-15-2021 16:00-0400 Diastolic blood pressure 73 mm[Hg] Ignacio Bonners Other [employer] Other 10-15-2021 16:00-0400 Respiratory rate 20 /min Ignacio Bonners Other [employer] Other 10-15-2021 16:00-0400 SaO2% (BldA) [Mass fraction] 95 % Igncaio Bonners Other [employer] Other 10-15-2021 16:00-0400 Systolic blood pressure 109 mm[Hg] Ignacio Bonners Other [employer] Other Encounters Encounter Date Encounter Type Care Provider Facility Start: 01-12-2024 End: 01-12-2024 ambulatory [facility] Work Phone: Start: 01-12-2024 End: 01-12-2024 Patient encounter procedure [facility] Work Phone: Start: 01-05-2024 Non-patient / Non-visit [facility] Work Phone: Start: 07-15-2023 End: 07-15-2023 ambulatory Aziz Bakhous Other [facility] Other Start: 07-15-2023 Office outpatient vi sit 25 minutes Aziz Bakhous [facility] Start: 01-27-2023 End: 01-27-2023 ambulatory Aziz Bakhous Other [facility] Other Start: 01-27-2023 Office outpatient vi sit 25 minutes Aziz Bakhous [facility] Start: 10-22-2022 ambulatory PRABHA ULRICH Facility: [facility] Start: 08-05-2022 End: 08-05-2022 ambulatory Aziz Bakhous Other [facility] Other Start: 08-05-2022 Office outpatient vi sit 15 minutes Aziz Bakhous [facility] Start: 07-29-2022 End: 07-30-2022 ambulatory AZIZ BAKHOUS Facility:[facility] Start: 01-14-2022 End: 01-14-2022 ambulatory Aziz Bakhous Other [facility] Other Start: 01-14-2022 Office outpatient vi sit 15 minutes Aziz Bakhous [facility] Start: 01-07-2022 End: 01-08-[address] DOCTOR MEDRANO Facility:[facility] Start: 10-15-2021 End: 10-15-2021 ambulatory Aziz Bakhous Other [employer] Other Start: 10-15-2021 Office outpatient ne w 30 minutes Aziz Bakhous [facility] Plan of Treatment Date Care Activity Detail Author Renal function 1999 panel - Serum or Plasma [facility] enter [facility] Payers Date Payer Category Payer Medicare [id number] 1957 Self-pay [id number] 1945 Unknown [id number] 1945 Unknown [id number] 1945 Unknown [id number] Unknown [id number] Social History Date Type Detail Facility Unknown if ever smoked [facility] Other Sex Assigned At Sex Assigned At Bir th [employer] Other Start: 01-12-2024 Tobacco smoking status NHIS Ex-smoker (finding) [facility] Start: 1945 Sex Assigned At Male F [facility] Evaluation note 07-15-2023 Note Date & [...] the patient to take OTC VD supplement [id number] U PO daily [employer] Other Evaluation note 01-27-2023 Note Date & [...] level is within normal limit this visit. [employer] Other Evaluation note 08-05-2022 Note Date & [...] next visit Jul, Hypomagnesemia (ICD-10 - E83.42) [employer] Other Evaluation note 01-14-2022 Note Date & [...] protein diet. Recheck uric acid next visit [employer] Other Evaluation note 10-15-2021 Note Date & [...] E78.5) Follow with PCP. Already on statin [employer] Other Evaluation note Note Date & Type Note Facility Evaluation note Diagnosis Onset Date Anemia of renal disease acut e Chronic kidney disease, stage 3b acute Hyperlipidemia acute Hypertensive nephropathy acu te Hyperuricemia acute Hypomagnesemia acute Obesity (BMI 30-39.9) acute Vitamin D deficiency acute [facility] Work Phone: History general Narrative - Reported Note Date & Type Note Facility History general Narrative - Reported Type Medical History HYPERTENSION Medical History HYPERLIPIDEMIA Medical History SEASONAL ALLERGIES Medical History SLEEP APNEA Surgical History CARPAL TUNNEL RELEASE X 2 Surgical History THROAT SURGERY FOR SLEEP APNEA [employer] Other Summary Purpose Family History Relationship Condition [...] and content) DATE CREATED AUTHOR 10/22/2022 [facility] Care Teams (unrecognized sec tion [...] BE BASED ON THE PRIMARY CLINICAL RECORDS. [employer] provides no warranty or guarantee of the accuracy or completeness of information in this document.
[2024-07-08 10:17] LABS: Chol HDL Ratio 4.2; Cholesterol 202 mg/dL (<=200); HDL Cholesterol 48 mg/dL (40-60); Triglycerides 172 mg/dL (<=150); VLDL CHOLESTEROL 34.4 mg/dL
== END 2024-07-08 08:18 | disposition home or self-care (01) ==
LOC: LAB 08:19
PROVIDERS: PCP Nurse Practitioner Family; Visit Provider Nurse Practitioner Family
DX: E78.5 Hyperlipidemia, unspecified (principal)
CPT/HCPCS: 36415; 80061

== ENCOUNTER 2025-01-16 07:47 | Outpatient (OUT) | payer MEDICARE, SELFPAY ==
[2025-01-16 08:17] LABS: Glucose Urine UA NEGATIVE (NEGATIVE)
[2025-01-16 08:29] LABS: Protein Creatinine Ratio Urine 0.19; Total Protein Urine Random 39.2 mg/dL (<=11.9)
[2025-01-16 08:32] LABS: Hematocrit 44.2 % (42.0-54.0); Hemoglobin 14.7 g/dL (14.0-18.0); Mean Corpuscular HGB Conc 33.3 g/dL (29.9-35.2); Mean Corpuscular Hemoglobin 31.5 pg (25.9-34.0); Mean Corpuscular Volume 94.8 fL (80.0-94.0); Platelet Count 163 10^3/uL (150-450); Red Blood Count 4.66 10^6/uL (4.70-6.10); White Blood Count 9.7 10^3/uL (4.0-11.0)
[2025-01-16 08:33] LABS: Albumin Level 3.6 g/dL (3.4-5.0); Anion Gap 16.7; Blood Urea Nitrogen 30.0 mg/dL (7.0-18.0); Calcium 9.5 mg/dL (8.5-10.1); Carbon Dioxide 24.8 mmol/L (21.0-32.0); Chloride 106 mmol/L (98-107); Estimated GFR (African America 44 (>=60 mL/min/1.73m^2); Estimated GFR (Non-African Ame 36 (>=60 mL/min/1.73m^2); Glucose 121 mg/dL (74-106); Magnesium 1.9 mg/dL (1.8-2.4); Potassium 4.5 mmol/L (3.5-5.1); Sodium 143 mmol/L (136-145); Uric Acid 7.9 mg/dL (3.5-7.2)
== END 2025-01-16 07:48 | disposition home or self-care (01) ==
LOC: LAB 07:49
PROVIDERS: PCP Nurse Practitioner Family; Visit Provider Internal Medicine Nephrology
DX: E55.9 Vitamin D deficiency, unspecified (principal); E66.9 Obesity, unspecified; N18.9 Chronic kidney disease, unspecified; D63.1 Anemia in chronic kidney disease; E79.0 Hyperuricemia without signs of inflammatory arthritis and tophaceous disease
CPT/HCPCS: 36415; 80069; 81003; 82306; 82570; 83735; 83970; 84156; 84550; 85027